=== PATIENT | female | born 1955 | race Caucasian/White ===

== ENCOUNTER → 2023-10-03 | Outpatient (CLI) | payer MEDICARE, SELFPAY ==
--- NOTE | 2023-10-03 08:43 | CT_ITS ---
STUDY: CT ABDOMEN AND PELVIS WITH CONTRAST REASON FOR EXAM: Female, 67 years old. Abdominal pain, constipation RADIATION DOSAGE (If Supplied By Facility): CTDIvol = ( 19.85 ) mGy, DLP = ( 1483.72 ) mGycm TECHNIQUE: Oral and amp;amp; IV Gastrografin and amp;amp; 100mL Isovue-300 was administered. Transaxial images were obtained from the dome of the diaphragm to the symphysis pubis. Multiplanar coronal and sagittal images were reformatted. Individualized Dose Optimization Techniques Were Used For This CT. COMPARISON: Prior study dated: 02/23/2011 FINDINGS: The visualized lung bases are unremarkable. The visualized portions of the heart are within normal limits. Normal liver. Normal gallbladder and extrahepatic biliary system. Normal spleen. Normal pancreas. Normal bilateral adrenal glands. Normal visualized stomach. Normal in caliber small bowel loops narrowing of the rectosigmoid colon likely due to underdistention.. The colon is better evaluated by colonoscopy. Diverticulosis without evidence of acute diverticulitis. The appendix is visualized and appears normal. There is diffuse atherosclerotic calcification of the abdominal aorta, without a demonstrated aneurysm. No retroperitoneal adenopathy. Normal right kidney. Normal left kidney. Normal urinary bladder. Metallic clips from previous tubal ligation. No pelvic mass. No free fluid. Normal abdominal wall. Fusion of the lower thoracic and upper lumbar vertebrae with pedicle screws and rods. CT/Abdomen/Pelvis WITH Contrast IMPRESSION: 1. Diverticulosis without evidence of acute diverticulitis. 2. No focal acute inflammatory process. Electronically Signed: Jorge Slater MD at 11:53 EST ,
--- OUTSIDE RECORDS SUMMARY | 2023-10-03 09:05 | XMS RPT_ITS | CCD ---
Author Name Unknown Address [facility] [facility] [address] [place] [address] Organization [facility] Care Team Providers Care Ep Technologist Name Role Phone Kash Trejo DO Primary Care Provider [phone] MARV NORRIS Referring Unavailable KASH TREJO Attending Unavailable KASH TREJO Primary Care Unavailable OPAL CHEN Referring Unavailable KASH TREJO Primary Care Unavailable MARV NORRIS Referring Unavailable KASH TREJO Primary Care Unavailable Kash Trejo DO Primary Care Provider Medications Current Medications Medication Drug Class(es) Dates Sig (Normalized) Sig (Original) candesartan cilexetil 8 mg oral tablet (16 sources) Angiotensin 2 Receptor Fadumo Start: 12-23-2021 End: 12-20-2023 take 1 tablet by mouth once daily candesartan (ATACAND) 8 mg tablet Indications: Essential hypertension Take 1 tablet by mouth once daily. 90 tablet 3 09/21/2023 12/20/2023 Active Completed/Discontinued Medications Medication Drug Class(es) Dates Sig (Normalized) Sig (Original) aspirin 81 mg delayed release oral tablet (17 sources) Platelet Aggregation Inhibitor, Nonsteroidal Anti-inflammatory Drug take 1 tablet by mouth once daily aspirin, enteric coated (ASPIRIN LOW DOSE) 81 mg EC tablet Take 81 mg by mouth once daily. 0 Active Problems Active Problems Problem Classification Problem Date Documented Da te Episodic/Chronic Anxiety disorders (20 sources) Panic disorder without agoraphobia; Translations: [Panic disorder [episodic paroxysmal anxiety]] Onset: 2 02-20-2008 Chronic Cancer of breast (19 sources) Malignant tumor of breast ; Translations: [Malignant neoplasm of unspecified site of unspecified female breast] Onset: 5 02-22-2015 Chronic Disorders of lipid metabolism (16 sources) Dyslipidemia; Translations: [Hyperlipidemia, unspecified] Onset: 2 12-23-2021 Chronic Diverticulosis and diverticulitis (17 sources) Diverticulitis of large intestine without perforation or abscess without bleeding; Translations: [Diverticulitis of colon (without mention of hemorrhage)] Onset: 8 07-25-2021 Chronic Esophageal disorders (19 sources) Gastroesophageal reflux disease; Translations: [Gastro-esophageal reflux disease without esophagitis] Onset: 4 02-20-2008 Chronic Essential hypertension (20 sources) Hypertensive disorder; Translations: [Essential (primary) hypertension] Onset: 3 04-08-2013 Chronic Nutritional deficiencies (15 sources) Vitamin D deficiency; Translations: [Vitamin D deficiency, unspecified] Onset: 2 12-23-2021 Chronic Osteoarthritis (17 sources) Osteoarthritis; Translations: [Unspecified osteoarthritis, unspecified site] 02-20-2008 Chronic Other bone disease and musculoskeletal deformities (17 sources) Osteopenia; Translations: [Other specified disorders of bone density and structure, multiple sites] 01-03-2021 Episodic Other gastrointestinal disorders (3 sources) Acute constipation; Translations: [Constipation, unspecified] Onset: 4 09-21-2023 Episodic Other gastrointestinal disorders (3 sources) Abdominal bloating; Translations: [Abdominal distension (gaseous)] Onset: 4 09-21-2023 Episodic Other gastrointestinal disorders (2 sources) Burping; Translations: [Eructation] Onset: 4 10-02-2023 Episodic Other nervous system disorders (17 sources) Carpal tunnel syndrome of right wrist; Translations: [Carpal tunnel syndrome, right upper limb] Onset: 9 04-22-2019 Chronic Other nutritional; endocrine; and metabolic disorders (17 sources) Obesity; Translations: [Obesity, unspecified] 02-20-2008 Chronic Other nutritional; endocrine; and metabolic disorders (18 sources) Obese class I; Translations: [Obesity, unspecified] Onset: 9 04-22-2019 Chronic Spondylosis; intervertebral disc disorders; other back problems (20 sources) Degeneration of lumbar intervertebral disc; Translations: [Other intervertebral disc degeneration, lumbar region] Onset: 6 02-18-2016 Chronic Past or Other Problems Problem Classification Problem Date Documented Da te Episodic/Chronic Cancer of breast (17 sources) History of malignant neoplasm of breast; Translations: [Personal history of malignant neoplasm of breast] Onset: 02-04-2016 02-04-2016 Episodic Conditions associated with dizziness or vertigo (17 sources) Vertigo; Translations: [Dizziness and giddiness] Onset: 12-30-2020 12-30-2020 Episodic Diabetes mellitus without complication (18 sources) Impaired fasting glycemia; Translations: [Impaired fasting glucose] Onset: 04-22-2019 04-22-2019 Episodic Gastritis and duodenitis (17 sources) Acute gastritis; Translations: [Acute gastritis without bleeding] Onset: 02-12-2008 02-20-2008 Episodic Nonmalignant breast conditions (17 sources) Inflammatory disorder of breast; Translations: [Mastitis without abscess] Onset: 10-01-2012 10-01-2012 Episodic Other connective tissue disease (10 sources) Trochanteric bursitis; Translations: [Trochanteric bursitis, right hip] Onset: 12-08-2022 Episodic Other inflammatory condition of skin (10 sources) Granuloma annulare; Translations: [Granuloma annulare] Onset: 12-08-2022 Episodic Other screening for suspected conditions (not mental disorders or infectious disease) (7 sources) Patient encounter status; Translations: [Encounter for screening mammogram for malignant neoplasm of breast] Onset: 2022 Episodic Other skin disorders (17 sources) Actinic keratosis; Translations: [Actinic keratosis] Onset: 04-22-2019 04-22-2019 Episodic Spondylosis; intervertebral disc disorders; other back problems (20 sources) Chronic low back pain; Translations: [Lumbago with sciatica, unspecified side] Onset: 02-18-2016 02-18-2016 Episodic Results Test Name Value Interpretation Reference Range Facil ity Vital Signs Date Time Vital Sign Value Performing Clinician Aubrey pelayo 09-21-2023 13:05-0500 Body temperature 97.11 [degF] Kash [facility] Work Phone: [facility] 09-21-2023 13:05-0500 Body weight 85.73 kg Kash Monterorison DO Work Phone: [facility] 09-21-2023 13:05-0500 Diastolic blood pressure 80 mm[Hg] Kash Trejo DO Work Phone: [facility] 09-21-2023 13:05-0500 Heart rate 80 /min Kash Trejo DO Work Phone: [facility] 09-21-2023 13:05-0500 Respiratory rate 16 /min Kash Trejo DO Work Phone: [facility] 09-21-2023 13:05-0500 Systolic blood pressure 146 mm[Hg] Kash Trejo DO Work Phone: [facility] 12-08-2022 08:04-0400 Body height 159 cm Kash Trejo DO Work Phone: [facility] 12-08-2022 08:04-0400 Body temperature 98.01 [degF] Kash Trejo DO Work Phone: [facility] 12-08-2022 08:04-0400 Body weight 83.92 kg Kash Trejo DO Work Phone: [facility] 12-08-2022 08:04-0400 Diastolic blood pressure 70 mm[Hg] Kash Trejo DO Work Phone: [facility] 12-08-2022 08:04-0400 Heart rate 76 /min Kash Trejo DO Work Phone: [facility] 12-08-2022 08:04-0400 Respiratory rate 16 /min Kash Trejo DO Work Phone: [facility] 12-08-2022 08:04-0400 Systolic blood pressure 124 mm[Hg] Kash Trejo DO Work Phone: [facility] Encounters Encounter Date Encounter Type Care Provider Facility Start: 09-24-2023 Telephone encounter Kash palomino DO Work Phone: [facility] Procedures Date Procedure Procedure Detail Performing Clinician Start: 12-07-2022 Lipid 1996 panel - S angel luis or Plasma Screen Wstr Start: 2022 ISAIAH SCREENING W IVAN Al yson Norris STOVE TENDER.MARKETING FINANCE SPECIALIST Work Phone: Start: 2022 Mammography Mammograph y Coordinator Start: 06-02-2022 INFLUENZA SEASONAL QUADRIVALENT HIGH DOSE AGE 65+ Kash Trejo DO Work Phone: Start: 12-23-2021 Adult depression scr eening assessment Danielle Shafer PA-C Work Phone: Start: 11-14-2021 ISAIAH SCREENING W IVAN Elicia sueneil Ita Caleb DO Work Phone: Start: 11-14-2021 Mammography Screen Wst r Start: 12-22-2020 Adult depression scr eening assessment Screen Wstr Start: 08-10-2015 Colonoscopy Screen Wst r Plan of Treatment Date Care Activity Detail Author Start: 12-22-2030 Urine microalbumin profile [facility] Start: 12-08-2027 Lipid 1996 panel - Serum or Plasma Lipid Screening [facility] Start: 12-08-2027 Lipid panel Lipid Screening [facility] Start: 12-08-2027 LIPID SCREEN LIPID SCREEN [facility] Start: 12-21-2026 LIPID SCREEN LIPID SCREEN [facility] Start: 09-21-2026 Diabetes Screening Diabetes Screening [facility] Start: 12-22-2025 LIPID SCREEN LIPID SCREEN [facility] Start: 12-07-2025 DIABETES SCREEN DIABETES SCREEN [facility] Start: 12-07-2025 Diabetes Screening Diabetes Screening [facility] Start: 08-10-2025 Colonoscopy COLONOSCOPY [facility] Start: 08-10-2025 COLORECTAL CANCER SCREENING COLORECTAL CANCER SCREENING [facility] Start: 08-10-2025 Screening for malignant neoplasm of colon [facility] Start: 12-21-2024 DIABETES SCREEN DIABETES SCREEN [facility] Start: 09-21-2024 Annual PCP Team Chronic Disease Visit Annual PCP Team Chronic Disease Visit [facility] Start: 12-23-2023 DIABETES SCREEN DIABETES SCREEN [facility] Start: 12-09-2023 ANNUAL PCP TEAM CHRONIC DISEASE VISIT ANNUAL PCP TEAM CHRONIC DISEASE VISIT [facility] Start: 12-09-2023 BP CONTROLLED (<130/80) BP CONTROLLED (<130/80) [facility] in Start: 11-10-2023 Mammography [facility] Start: 11-10-2023 Screening for malignant neoplasm of breast Mammogram Screening [facility] Start: 07-30-2023 Depression Assessment Depression Assessment [facility] Start: 03-30-2023 Covid-19 Vaccine ( season) Covid-19 Vaccine ( season) [facility] Start: 03-30-2023 Influenza vaccination [facility] Start: 12-23-2022 Adult depression screening assessment DEPRESSION SCREENING [facility] Start: 12-23-2022 ANNUAL PCP TEAM CHRONIC DISEASE VISIT ANNUAL PCP TEAM CHRONIC DISEASE VISIT [facility] Start: 12-23-2022 BP CONTROLLED (<130/80) BP CONTROLLED (<130/80) [facility] inic Start: 12-04-2022 End: 02-03-2023 25-hydroxyvitamin D3 [Mass/volume] in Serum or Plasma VITAMIN D 25 HYDROXY Lab Routine Well adult exam Expected: 12/04/2022, Expires: 02/03/2023 [facility] Work Phone: Immunizations Immunization Date Immunization Notes Care Provider Yady lfeming 06-02-2022 influenza, high-dose , quadrivalent vaccine (FLUZONE HIGH DOSE QUADRIVALENT) Immunization [place] Work Phone: [facility] Work Phone: 06-02-2022 influenza virus vaccine, unspecified formulation Screen [facility] 07-04-2021 zoster vaccine recombinant Immunization [place] Work Phone: [facility] Work Phone: 06-21-2021 pneumococcal polysaccharide vaccine, 23 valent Immunization [place] Work Phone: [facility] Work Phone: 12-24-2020 zoster vaccine recombinant Immunization [place] Work Phone: [facility] Work Phone: 12-22-2020 tetanus toxoid, redu rg diphtheria toxoid, and acellular pertussis vaccine, adsorbed Screen [facility] Work Phone: 06-18-2020 pneumococcal conjuga te vaccine, 13 valent Immunization [place] Work Phone: [facility] Work Phone: 05-16-2017 influenza, seasonal, injectable Screen Wstr [facility] Work Phone: 07-19-2015 influenza, injectabl e, quadrivalent, contains preservative Screen [facility] 06-03-2014 influenza, seasonal, injectable Screen tr [facility] Work Phone: Payers Date Payer Category Payer Medicare MMO MEDICARE MMO MEDADVANTAGE [facility] [id number] 2021-Present [phone] [address] [place] [address] [facility] [id number] 2021 Medicare [id number] 2021 Unknown [id number] Social History Date Type Detail Facility Start: 08-02-2012 End: 12-08-2022 Tobacco smoking status NHIS Ex-smoker [facility] in End: 07-30-2004 History of tobacco use Current smoker [facility] End: 07-30-2004 History of tobacco use Cigarette Smoker [facility] Start: 09-16-2021 End: 09-21-2023 Alcohol intake Current non-drinker of alcohol (finding) [facility] Start: 09-16-2021 History SDOH Alcohol Frequency 2 [facility] Start: 09-16-2021 History SDOH Alcohol Std Drinks 1 [facility] Start: 09-16-2021 History SDOH Social Connections Phone 4 [facility] Start: 09-16-2021 History SDOH Social Connections Get Together 98 [facility] Start: 09-16-2021 History SDOH Social Connections Living 5 [facility] Start: 09-16-2021 History SDOH Physica l Activity DPW 7 [facility] Start: 09-17-2019 Education 12 [facility] Start: 1955 Sex Assigned At Not on file [facility] Start: 11-04-2021 End: 11-14-2021 Exposure to SARS-CoV-2 (event) Not sure [facility] Start: 08-02-2012 End: 09-21-2023 Cigarettes smoked current (pack per day) - Reported 0.5 [facility] Start: 08-02-2012 End: 12-08-2022 Tobacco use and exposure Smokeless tobacco non-user [facility] Start: 09-15-2021 End: 09-21-2023 Social connection and isolation panel [facility] How often do you get together with friends or relatives? Patient refused [facility] Do you belong to any clubs or organizations such as catholic groups, unions, fraternal or athletic groups, or school groups? No [facility] Are you now , , , , never or living with a partner? [facility] How often to you hav e a drink containing alcohol? Monthly or less [facility] How many standard dr inks containing alcohol do you have on a typical day? 1 or 2 [facility] How often do you hav e 6 or more drinks on 1 occasion? Never [facility] How hard is it for y ou to pay for the very basics like food, housing, medical care, and heating Not very hard [facility] Do you feel stress - tense, restless, nervous, or anxious, or unable to sleep at night because your mind is troubled all the time - these days [OSQ] Not at all [facility] (I/We) worried wheth er (my/our) food would run out before (I/we) got money to buy more. Never true [facility] Start: 1955 Sex Assigned At Female C [facility] Start: 09-11-2023 Gender identity Identifies as female gender (finding) [facility] Medical Equipment Procedure Code Equipment Code Equipment Origin al Text Equipment Identifier Dates Port Implantable Power Port 6fr - [id number] Start: 01-12-2012 Clinical Notes 02-07-2012 to 10-02-2023 Kash Trejo, DO - 10/02/2023 9:19 AM ESTTelephone Encounter - Khushboo Jones LPN - 09/26/2023 1:04 PM ESTTelephone Encounter - Marv Norris APRN.CNP - 09/26/2023 11:13 AM EST Note Date & Type Note Facility 10-02-2023 History of Present illness Narrative CC: Ivonne Fontenot is a 67 year old female who presents to the office for abdominal symptoms HPI: Abdominal symptoms- she has had intermittent abdominal pain and bloating and abdominal distension, typically in upper abdomen. She thought was due to eggs and cheese which she has eliminated. She has been drinking a juiced drink from carrots, celery and spinach at lunch and breakfast is PB and whole grain toast. She is avoiding processed foods. No vomiting. No blood in stool. Does have intermittent nausea. Last colonoscopy was 2015. Does have belching and GERD symptoms that come and go as well. She is willing to have further testing She remembers in 2010 that she had 6 days of abdominal severe pain, diagnosed with a bowel obstruction. Given enemas and had colonoscopy at that time. PAST MEDICAL HISTORY Diagnosis Date JOSE positive 12/2013 Breast cancer (HCC) left Carpal tunnel syndrome on both sides 08/2013 Diverticulosis of colon (without mention of hemorrhage) Endometriosis, site unspecified Esophageal reflux Zantac daily helps - usually it's ASA or MVI that cause symptoms Hypertension Iron deficiency anemia, unspecified resolved Obesity, unspecified Osteoarthrosis, unspecified whether generalized or localized, other specified sites neck Osteopenia of multiple sites Panic disorder without agoraphobia Perforation of intestine (HCC) descending colon Psoriasis Examination Supervisor Dr. Vanessa PAST SURGICAL HISTORY Procedure Laterality Date BX BREAST PERC NEED W/GUID 11/25/11 U/S needle core bx UOQ left breast COLONOSCOPY FLX DX W/COLLJ SPEC WHEN PFRMD 02/12/2008 Colonoscopy COLONOSCOPY FLX DX W/COLLJ SPEC WHEN PFRMD 02-26-11 CT GUIDED ABCESS DRAINAGE 05/03/2008 at [facility] DILATION & CURETTAGE DX&/THER NONOBSTETRIC ESOPHAGOGASTRODUODENOSCOPY TRANSORAL DIAGNOSTIC 02/12/2008 EGD INSJ TUNNELED CTR VAD W/SUBQ PORT AGE 5 YR/> RIGHT IJ LAPAROSCOPY COLECTOMY PARTIAL W/ANASTOMOSIS 04/18/08 LIG/TRNSXJ FLP TUBE ABDL/VAG APPR UNI/BI MASTECTOMY,PARTIAL, WITH AXILLARY LYMPHADENECTOMY 12-12-11 LEFT PAST SURGICAL HISTORY OF purnima fixation of T12 - after fracture PAST SURGICAL HISTORY OF 1994 T12 burst s/p fall, rods/screws in place RMVL PETROS CTR VAD W/SUBQ PORT/CELL PLASTERER CTR/PRPH INSJ 2/6/13 Removal right IJ port Current Outpatient Medications Medication Sig hydroCHLOROthiazide 12.5 mg capsule Take 1 capsule by mouth once daily. calcium carb/vit D2/minerals (CALCIUM 600+MINERALS ORAL) Take by mouth. 1200 mg daily omeprazole (PRILOSEC) 20 mg capsule Take 1 capsule by mouth once daily. MULTIVITAMIN ORAL Take by mouth. Cholecalciferol, Vitamin D3, (VITAMIN D) 1,000 unit cap Take 1,000 Units by mouth once daily. [place]-3 Fatty Acids-Vitamin E (FISH OIL) 1,000 mg cap Take 1 capsule by mouth once daily. aspirin, enteric coated (ASPIRIN LOW DOSE) 81 mg EC tablet Take 81 mg by mouth once daily. candesartan (ATACAND) 8 mg tablet Take 1 tablet by mouth once daily. sertraline (ZOLOFT) 50 mg tablet Take 1 tablet by mouth once daily. No current facility-administered medications for this visit. ALLERGIES No Known Allergies Social History Tobacco Use Smoking status: Former Packs/day: 0.50 Years: 10.00 Additional pack years: 0.00 Total pack years: 5.00 Types: Cigarettes Quit date: 07/30/2004 Years since quittin.1 Smokeless tobacco: Never Vaping Use Vaping Use: Never used Substance Use Topics Alcohol use: No Drug use: No ROS: See HPI PE: BP 146/80 Pulse 80 Temp (Src) 97.1 (Left Tympanic) Resp 16 Wt 189 lb (85.7kg) LMP 12/31/2010 Gen: A&OX3, NAD, non-toxic appearing HEENT: PERRLA, EOMs intact b/l, nares without drainage, pharynx without erythema, exudate, lesions, or drainage. Uvula midline. Neck: No LAD, no thyromegaly, no meningismus. CV: RRR, no murmur Lungs: CTA b/l, no wheezing Skin: No rashes, lesions, or wounds on exposed skin. Abd: distension present, tender upper abdomen, bloating present, no R/r/g, normal to slightly hypoactive bowel sounds, no obvious masses. ASSESSMENT/PLAN: 1. Acute constipation - ICD9: 564.00, ICD10: K59.00 (primary diagnosis) Labs as ordered, referral to Gen surgeon for evaluation for EGD and colonoscopy. Last testing 8 years ago. Symptoms are worsening - CBC + DIFF - COMP METABOLIC PANEL - TSH BLD - T4 FREE/FREE THYROX - T3 FREE BLD - LIPASE BLD - XR ABDOMEN 2V ROUTINE SUPINE W UPRIGHT/DECUB/CTL - CONSULT TO GENERAL SURGERY 2. Essential hypertension - ICD9: 401.9, ICD10: I10 - Controlled - Continue current medications - Recommend home blood pressure monitoring, to bring results to next visit - Encouraged sodium restriction, DASH or Mediterranean diet - Recommend regular aerobic exercise - CANDESARTAN 8 MG TABLET 3. NATASHA (generalized anxiety disorder) - ICD9: 300.02, ICD10: F41.1 Prescription refilled, stable - SERTRALINE 50 MG TABLET 4. Bloating - ICD9: 787.3, ICD10: R14.0 Labs as ordered, referral to Gen surgeon for evaluation for EGD and colonoscopy. Last testing 8 years ago. Symptoms are worsening - CBC + DIFF - COMP METABOLIC PANEL - TSH BLD - T4 FREE/FREE THYROX - T3 FREE BLD - LIPASE BLD - XR ABDOMEN 2V ROUTINE SUPINE W UPRIGHT/DECUB/CTL - CONSULT TO GENERAL SURGERY 5. Gastroesophageal reflux disease without esophagitis - ICD9: 530.81, ICD10: K21.9 Labs as ordered, referral to Gen surgeon for evaluation for EGD and colonoscopy. Last testing 8 years ago. Symptoms are worsening 6. Belching - ICD9: 787.3, ICD10: R14.2 Labs as ordered, referral to Gen surgeon for evaluation for EGD and colonoscopy. Last testing 8 years ago. Symptoms are worsening 7. Malignant neoplasm of female breast, unspecified estrogen receptor status, unspecified laterality, unspecified site of breast (HCC) - ICD9: 174.9, ICD10: C50.919 Hx of Kash Trejo DO Return if no improvement. Follow up with Kash Trejo DO. To ER if develops chest pain, shortness of breath. Discussed risks, benefits, alternatives, and potential side effects of medications. Patient/Guardian expressed understanding and agreed with the plan. See patient instructions. Kash Trejo DO [address] [place] [address] documented in this encounter [facility] 09-26-2023 Miscellaneous Notes Spoke with pt gave information provided. Pt voices understanding. I understand her anxiousness. Continue with daily miralax and increasing fluids. Also try to alter diet to include fiber rich foods. Thank you, Marv Norris APRN.MARKETING FINANCE SPECIALIST Patient calling asking if anything she should be doing for her bowels? She is using miralax every evening. She is drinking over 100 ounces of water. Patient is very anxious about her situation, does not want to be back in the hospital with bowel issus again. Please advise Patient requested general surgery consult to be faxed to Dr Lora Duvall at [phone]. Printed consult and face sheet and insurance card copy and faxed. After 6 attempts and 2 different fax machines, gave consult to ethologist to deliver on her next rounds. documented in this encounter [facility] 09-21-2023 History of Present illness Narrative Radiology Service Progress Note PATIENT NAME: Ivonne Fontenot DATE OF SERVICE: September 21, 2023 TIME: 3:11 PM PATIENT IDENTITY VERIFICATION COMPLETED USING TWO (2) IDENTIFIERS: Name and Date of confirmed by patient verbally. FALL SCREENING: Has the patient had 2 falls in the last year or 1 fall with injury or currently using an Ambulatory Assistive Device (Walker, Cane, Wheelchair, Crutches, etc.)? No PATIENT GENDER DATA: Female. status: : No status: NO. PATIENT RELEVANT IMPLANT DATA REVIEWED: Yes PATIENT PRESENTS WITH AN IMPLANTABLE OR ATTACHED SIGN HANGER SUPERVISOR: No RADIOLOGY DEPARTMENT: General X-ray: Exam(s) Completed: Abdomen X-Ray: Abdomen PERIPHERAL IV DATA: Not applicable SIGNED BY: RT Vadim(R) September 21, 2023 3:11 PM documented in this encounter [facility] 09-20-2023 Miscellaneous Notes Patient call in for bowel movement issues. Patient normally has 3-4 bowel movements a day. Patient on Sunday did not have a bowel movement. Patient states that her abdomen looked and felt swollen. Patient took dose of Miralax Sunday night. Patient had bowel movement, although not her normal on Sunday. Patient had another dose Sunday evening and had bowel movement today. Patient states that she still feels bloated. Nurse Triage assessment completed with protocol recommending for disposition of See PCP in 24 hours. Patient scheduled with Dr. Trejo on 09/21/2023. Care advice reviewed with patient, patient stated understanding. Patient advised to contact office or seek evaluation in urgent care or ER if symptoms persist or gets worse. Reason for Disposition Abdomen is more swollen than usual Answer Assessment - Initial Assessment Questions 1. STOOL PATTERN OR FREQUENCY: 3-4 times bowel movement a day; sometimes more 2. STRAINING: Not straining; 3. RECTAL PAIN: Denies rectal pain 4. STOOL COMPOSITION: Stool are not hard; soft stools 5. BLOOD ON STOOLS: Denies blood 6. CHRONIC CONSTIPATION: Stools are normally soft 7. CHANGES IN DIET OR HYDRATION: Eating Healthier; not drinking as much; Started drinking fluids more yesterday 8. MEDICINES: Denies 9. LAXATIVES: Has been using Miralax past couple of days; Patient drank it at night 10. ACTIVITY: Walks 2.5 miles 6-7 days a week 11. CAUSE: Unsure 12. OTHER SYMPTOMS: Bloated; yesterday abdomen felt hard, today she just feels bloated 13. MEDICAL HISTORY: Patient has had bowel surgery. Protocols used: [id number] documented in this encounter [facility] 09-03-2023 Miscellaneous Notes Pt sent in emotion.me message requesting an order for her yearly mammogram, pts last mammogram was 2022 Please review and advise Thank you! documented in this encounter [facility] 01-31-2023 Miscellaneous Notes Patient has been identified by name and date of : Yes, Lelo Aragon RN Date 01/31/2023 Time 2:50 pm Patient phones for refill(s): Requested Prescriptions Pending Prescriptions Disp Refills hydroCHLOROthiazide 12.5 mg capsule 90 capsule 3 Sig: Take 1 capsule by mouth once daily. candesartan (ATACAND) 8 mg tablet 90 tablet 3 Sig: Take 1 tablet by mouth once daily. sertraline (ZOLOFT) 50 mg tablet 90 tablet 3 Sig: Take 1 tablet by mouth once daily. Date of last office visit with pcp: 12/08/2022 Future appt: none Last 2 Encounter Wt Readings: Date: Wt: 12/08/2022 83.9 kg (185 lb) 12/23/2021 83.9 kg (185 lb) Previous labs/tests for medication: Blood Pressure: BUN (mg/dL) Date Value 12/07/2022 23 12/22/2020 17 Sodium (mmol/L) Date Value 12/07/2022 138 12/22/2020 138 Last 1 Encounter BP Readings: Date: BP: 12/08/2022 124/70 Liver Function: ALT (U/L) Date Value 12/07/2022 15 12/22/2020 22 AST (U/L) Date Value 12/07/2022 22 12/22/2020 22 Please advise. Thank you. Lelo Aragon RN documented in this encounter [facility] 12-11-2022 Miscellaneous Notes Patient notified and verbalized understanding Margarita Rousseau Cma Please let patient know her labs are stable. Her hemoglobin a1c has improved. documented in this encounter [facility] 12-08-2022 Note HNO ID: [id number] Author: Kash Trejo, DO Service: ? Author Type: Physician Type: Progress Notes Filed: 12/08/2022 9:44 AM Note Text: CC: Ivonne Fontenot is a 67 year old female who presents to the office for routine follow up HPI: B/l hip pain, lateral, only when laying on her sides in the night. No swelling or skin cchanges. Osteopenia, has been trying to walk most days of the week with her dog MARLYN, diet controlled Granuloma Annulare, diagnosed by Derm, stable, b/l legs and abdomen and some on back. HTN, well controlled, taking medications as prescribed Anxiety, taking Zoloft, symptoms stable, no depression GERD, stable, taking omeprazole PAST MEDICAL HISTORY Diagnosis Date JOSE positive 12/2013 Breast cancer (HCC) left Carpal tunnel syndrome on both sides 08/2013 Diverticulosis of colon (without mention of hemorrhage) Endometriosis, site unspecified Esophageal reflux Zantac daily helps - usually it's ASA or MVI that cause symptoms Hypertension Iron deficiency anemia, unspecified resolved Obesity, unspecified Osteoarthrosis, unspecified whether generalized or localized, other specified sites neck Osteopenia of multiple sites Panic disorder without agoraphobia Perforation of intestine (HCC) descending colon Psoriasis Examination Supervisor Dr. Vanessa PAST SURGICAL HISTORY Procedure Laterality Date BX BREAST PERC NEED W/GUID 11/25/11 U/S needle core bx UOQ left breast COLONOSCOPY FLX DX W/COLLJ SPEC WHEN PFRMD 02/12/2008 Colonoscopy COLONOSCOPY FLX DX W/COLLJ SPEC WHEN PFRMD 02-26-11 CT GUIDED ABCESS DRAINAGE 05/03/2008 at [facility] DILATION AND CURETTAGE DXAND/THER NONOBSTETRIC ESOPHAGOGASTRODUODENOSCOPY TRANSORAL DIAGNOSTIC 02/12/2008 EGD INSJ TUNNELED CTR VAD W/SUBQ PORT AGE 5 YR/> RIGHT IJ LAPAROSCOPY COLECTOMY PARTIAL W/ANASTOMOSIS 04/18/08 LIG/TRNSXJ FLP TUBE ABDL/VAG APPR UNI/BI MASTECTOMY,PARTIAL, WITH AXILLARY LYMPHADENECTOMY 12-12-11 LEFT PAST SURGICAL HISTORY OF purnima fixation of T12 - after fracture PAST SURGICAL HISTORY OF 1994 T12 burst s/p fall, rods/screws in place RMVL PETROS CTR VAD W/SUBQ PORT/CELL PLASTERER CTR/PRPH INSJ 09/04/12 Removal right IJ port Social History: Social History Tobacco Use Smoking status: Former Packs/day: 0.50 Years: 10.00 Pack years: 5.00 Types: Cigarettes Quit date: 07/30/2004 Years since quittin.3 Smokeless tobacco: Never Vaping Use Vaping Use: Never used Substance Use Topics Alcohol use: No Drug use: No FAMILY HISTORY Problem Relation Age of Onset other (Dementia) Mother was not thought to be Alzheimer's - although some dementia seems to run in her side of family other (pancreatitis) Father due to gallstone - no EtOH - age 81 Diabetes Maternal Aunt Breast Cancer Sister age 64 - thought to possibly be related to premarin - doing well Cancer Sister Lung Current Outpatient prescriptions: hydroCHLOROthiazide (HYDRODIURIL, ESIDRIX) 12.5 mg capsule TAKE 1 CAPSULE DAILY candesartan (ATACAND) 8 mg tablet Take 1 tablet by mouth once daily. sertraline (ZOLOFT) 50 mg tablet Take 1 tablet by mouth once daily. calcium carb/vit D2/minerals (CALCIUM 600+MINERALS ORAL) Take by mouth. 1200 mg daily omeprazole (PRILOSEC) 20 mg capsule Take 1 capsule by mouth once daily. MULTIVITAMIN ORAL Take by mouth. Cholecalciferol, Vitamin D3, (VITAMIN D) 1,000 unit cap Take 1,000 Units by mouth once daily. aspirin, enteric coated (ASPIRIN LOW DOSE) 81 mg EC tablet Take 81 mg by mouth once daily. [place]-3 Fatty Acids-Vitamin E (FISH OIL) 1,000 mg cap Take 1 capsule by mouth once daily. Allergies: ALLERGIES No Known Allergies ROS: See HPI PE: 12/08/22 0804 BP: 124/70 Pulse: 76 Resp: 16 Temp: 36.7 ?C (98 ?F) TempSrc: Left Tympanic Weight: 83.9 kg (185 lb) Height: 159 cm (5' 2.6 ) Gen: AANDO, NAD, non-toxic appearing, Pleasant, cooperative HEENT: NT/AC, PERRLA,wearing glasses, EOMs intact b/l, nares clear and patent b/l, pharynx without erythema, exudate or lesions. MMM, Uvula midline. EACs without erythema or debris. TMs pearly kay with intact landmarks b/l. Neck: supple, No cervical LAD, no thyromegaly, no carotid bruits CV: RRR, normal S1 and S2, no murmurs, no gallops, no rubs, Pulses 2+ and symmetric in UE and LE b/l Lungs: normal respiratory effort, CTA b/l, no wheezing or rhonchi or rales Abd: soft, overweight, NT, ND, +BS, no hepatosplenomegaly MS: mild TTP b/l greater trochanter bursa areas and tight restricted IT bands b/l Neuro: CN II-XII intact b/l, strength 5/5 b/l UE and LE, DTRs 2/4 UE and LE, sensation intact. Skin: warm, dry, intact, granuloma annulare rash b/l legs and abdomen and mid and lower back ASSESSMENT/PLAN: 1. Greater trochanteric bursitis of both hips - ICD9: 726.5, ICD10: M70.61, M70.62 (primary diagnosis) Need for local icing and topical voltaren and stretches as d/w her today 2. Skin cancer scr (more content not included)... [facility] 12-08-2022 History of Present illness Narrative CC: Ivonne Fontenot is a 67 year old female who presents to the office for routine follow up HPI: B/l hip pain, lateral, only when laying on her sides in the night. No swelling or skin cchanges. Osteopenia, has been trying to walk most days of the week with her dog MARLYN, diet controlled Granuloma Annulare, diagnosed by Derm, stable, b/l legs and abdomen and some on back. HTN, well controlled, taking medications as prescribed Anxiety, taking Zoloft, symptoms stable, no depression GERD, stable, taking omeprazole PAST MEDICAL HISTORY Diagnosis Date JOSE positive 12/2013 Breast cancer (HCC) left Carpal tunnel syndrome on both sides 08/2013 Diverticulosis of colon (without mention of hemorrhage) Endometriosis, site unspecified Esophageal reflux Zantac daily helps - usually it's ASA or MVI that cause symptoms Hypertension Iron deficiency anemia, unspecified resolved Obesity, unspecified Osteoarthrosis, unspecified whether generalized or localized, other specified sites neck Osteopenia of multiple sites Panic disorder without agoraphobia Perforation of intestine (HCC) descending colon Psoriasis Examination Supervisor Dr. Vanessa PAST SURGICAL HISTORY Procedure Laterality Date BX BREAST PERC NEED W/GUID 11/25/11 U/S needle core bx UOQ left breast COLONOSCOPY FLX DX W/COLLJ SPEC WHEN PFRMD 02/12/2008 Colonoscopy COLONOSCOPY FLX DX W/COLLJ SPEC WHEN PFRMD 02-26-11 CT GUIDED ABCESS DRAINAGE 05/03/2008 at [facility] DILATION & CURETTAGE DX&/THER NONOBSTETRIC ESOPHAGOGASTRODUODENOSCOPY TRANSORAL DIAGNOSTIC 02/12/2008 EGD INSJ TUNNELED CTR VAD W/SUBQ PORT AGE 5 YR/> RIGHT IJ LAPAROSCOPY COLECTOMY PARTIAL W/ANASTOMOSIS 04/18/08 LIG/TRNSXJ FLP TUBE ABDL/VAG APPR UNI/BI MASTECTOMY,PARTIAL, WITH AXILLARY LYMPHADENECTOMY 12-12-11 LEFT PAST SURGICAL HISTORY OF purnima fixation of T12 - after fracture PAST SURGICAL HISTORY OF 1994 T12 burst s/p fall, rods/screws in place RMVL PETROS CTR VAD W/SUBQ PORT/CELL PLASTERER CTR/PRPH INSJ 09/04/12 Removal right IJ port Social History: Social History Tobacco Use Smoking status: Former Packs/day: 0.50 Years: 10.00 Pack years: 5.00 Types: Cigarettes Quit date: 07/30/2004 Years since quittin.3 Smokeless tobacco: Never Vaping Use Vaping Use: Never used Substance Use Topics Alcohol use: No Drug use: No FAMILY HISTORY Problem Relation Age of Onset other (Dementia) Mother was not thought to be Alzheimer's - although some dementia seems to run in her side of family other (pancreatitis) Father due to gallstone - no EtOH - age 81 Diabetes Maternal Aunt Breast Cancer Sister age 64 - thought to possibly be related to premarin - doing well Cancer Sister Lung Current Outpatient prescriptions: hydroCHLOROthiazide (HYDRODIURIL, ESIDRIX) 12.5 mg capsule TAKE 1 CAPSULE DAILY candesartan (ATACAND) 8 mg tablet Take 1 tablet by mouth once daily. sertraline (ZOLOFT) 50 mg tablet Take 1 tablet by mouth once daily. calcium carb/vit D2/minerals (CALCIUM 600+MINERALS ORAL) Take by mouth. 1200 mg daily omeprazole (PRILOSEC) 20 mg capsule Take 1 capsule by mouth once daily. MULTIVITAMIN ORAL Take by mouth. Cholecalciferol, Vitamin D3, (VITAMIN D) 1,000 unit cap Take 1,000 Units by mouth once daily. aspirin, enteric coated (ASPIRIN LOW DOSE) 81 mg EC tablet Take 81 mg by mouth once daily. [place]-3 Fatty Acids-Vitamin E (FISH OIL) 1,000 mg cap Take 1 capsule by mouth once daily. Allergies: ALLERGIES No Known Allergies ROS: See HPI PE: 12/08/22 0804 BP: 124/70 Pulse: 76 Resp: 16 Temp: 36.7 C (98 F) TempSrc: Left Tympanic Weight: 83.9 kg (185 lb) Height: 159 cm (5' 2.6 ) Gen: A&O, NAD, non-toxic appearing, Pleasant, cooperative HEENT: NT/AC, PERRLA,wearing glasses, EOMs intact b/l, nares clear and patent b/l, pharynx without erythema, exudate or lesions. MMM, Uvula midline. EACs without erythema or debris. TMs pearly kay with intact landmarks b/l. Neck: supple, No cervical LAD, no thyromegaly, no carotid bruits CV: RRR, normal S1 and S2, no murmurs, no gallops, no rubs, Pulses 2+ and symmetric in UE and LE b/l Lungs: normal respiratory effort, CTA b/l, no wheezing or rhonchi or rales Abd: soft, overweight, NT, ND, +BS, no hepatosplenomegaly MS: mild TTP b/l greater trochanter bursa areas and tight restricted IT bands b/l Neuro: CN II-XII intact b/l, strength 5/5 b/l UE and LE, DTRs 2/4 UE and LE, sensation intact. Skin: warm, dry, intact, granuloma annulare rash b/l legs and abdomen and mid and lower back ASSESSMENT/PLAN: 1. Greater trochanteric bursitis of both hips - ICD9: 726.5, ICD10: M70.61, M70.62 (primary diagnosis) Need for local icing and topical voltaren and stretches as d/w her today 2. Skin cancer screening - ICD9: V76.43, ICD10: Z12.83 stable 3. Granuloma annulare - ICD9: 695.89, ICD10: L92.0 - stable 4. Obesity, Class I, BMI 30-34.9 - ICD9: 278.00, ICD10: E66.9 Stable - Behavioral intervention, - PSMF, - Eat well program, and - Continue current medications 5. Dyslipidemia - ICD9: 272.4, ICD10: E78.5 - suboptimal control - Encouraged following a low fat, low cholesterol diet. - Discussed the benefits of regular aerobic exercise and weight loss. - Encouraged following a low carbohydrate, healthy oil intake diet. 6. NATASHA (generalized anxiety disorder) - ICD9: 300.02, ICD10: F41.1 Stable, continue zoloft 7. IFG (impaired fasting glucose) - ICD9: 790.21, ICD10: R73.01 Improving with exercise and diet changes. 8. Essential hypertension - ICD9: 401.9, ICD10: I10 - good control - Continue current medication(s) - Encouraged dietary sodium restriction/DASH diet - Recommended regular aerobic exercise. - Recommend home blood pressure monitoring, to bring results in on next visit - Discussed need and benefit for weight loss. - Goal of BP <130/80 Kash Trejo DO To ER if develops chest pain, shortness of breath, or severe worsening of symptoms. Discussed risks, benefits, alternatives, and potential side effects of medications. Patient expressed understanding and agreed with the plan. Kash Trejo DO [address] [place] [address] documented in this encounter [facility] 12-04-2022 Miscellaneous Notes TC to patient who verbalized understanding of lab orders and has no further questions at this time. NAHOMI Casarez Please let patient know her lab orders have been placed. Patient calls and states that she has wellness exam on 12/08/2022. Patient asking if lab orders can be placed so that she can get labs done prior to exam. When orders placed patient asking for call back. Lidia Alba RN documented in this encounter [facility] 11-10-2022 Miscellaneous Notes November 13, 2022 PID: [id number] Ivonne Fontenot [address] [place] [address] Dear Ms. Fontenot, We are pleased to inform you that the results of your recent breast imaging exam on 2022 are normal. Your mammogram demonstrates that you have dense breast tissue, which could hide abnormalities. Dense breast tissue, in and of itself, is a relatively common condition. Therefore, this information is not provided to cause undue concern; rather, it is to raise your awareness and promote discussion with your health care provider regarding the presence of dense breast tissue in addition to other risk factors. Early detection of cancer is very important. We also understand recommendations regarding breast cancer screening are controversial. Please discuss with your primary care provider which strategy is best for you and whether a mammogram is right for you. Your imaging studies and report will be kept on file at [facility] as part of your permanent medical record and are available for your continuing care. Thank you for allowing us to help in meeting your health care needs. Sincerely, Dr. Pimentel Interpreting Radiologist [facility] (Normal over 40) documented in this encounter [facility] 2022 Note HNO ID: [id number] Author: Katey Willoughby, [employer] Service: ? Author Type: Switching Operator Type: Progress Notes Filed: 2022 8:55 AM Note Text: Radiology Service Progress Note PATIENT NAME: Ivonne Fontenot DATE OF SERVICE: 2022 TIME: 8:29 AM PATIENT IDENTITY VERIFICATION COMPLETED USING TWO (2) IDENTIFIERS: Name and Date of confirmed by patient verbally. FALL SCREENING: Has the patient had 2 falls in the last year or 1 fall with injury or currently using an Ambulatory Assistive Device (Walker, Cane, Wheelchair, Crutches, etc.)? No PATIENT GENDER DATA: Female. status: : No status: NO. PATIENT RELEVANT IMPLANT DATA REVIEWED: Not Applicable RADIOLOGY DEPARTMENT: Mammography PERIPHERAL IV DATA: Not applicable SIGNED BY: Katey Willoughby KeyOwner 2022 8:29 AM [facility] 2022 History of Present illness Narrative Radiology Service Progress Note PATIENT NAME: Ivonne Fontenot DATE OF SERVICE: 2022 TIME: 8:29 AM PATIENT IDENTITY VERIFICATION COMPLETED USING TWO (2) IDENTIFIERS: Name and Date of confirmed by patient verbally. FALL SCREENING: Has the patient had 2 falls in the last year or 1 fall with injury or currently using an Ambulatory Assistive Device (Walker, Cane, Wheelchair, Crutches, etc.)? No PATIENT GENDER DATA: Female. status: : No status: NO. PATIENT RELEVANT IMPLANT DATA REVIEWED: Not Applicable RADIOLOGY DEPARTMENT: Mammography PERIPHERAL IV DATA: Not applicable SIGNED BY: Katey Willoughby KeyOwner 2022 8:29 AM documented in this encounter [facility] 08-24-2022 Miscellaneous Notes Ordered. Due in October. Please assist in scheduling. Thank you, Marv Norris APRN.MARKETING FINANCE SPECIALIST Pt is requesting an order for a mammogram be placed for her. Please review and advise. MARCELINO Dee documented in this encounter [facility] 03-27-2022 Miscellaneous Notes [place] 12/23/2021 NOV not scheduled at this time Ana Montiel Ma Patient has been identified by name and date of : Yes Requested Prescriptions Pending Prescriptions Disp Refills triamcinolone acetonide (KENALOG) 0.1 % cream 453.6 g 1 Sig: Apply 1 application to affected area twice daily. Apply sparingly to area for rash/itching. RX INSTRUCTIONS: Patient aware RX will be sent to pharmacy. No need to notify patient. Irma Fairbanks documented in this encounter [facility] 01-31-2022 Miscellaneous Notes Patient phones requesting refills as follows: Pending Prescriptions Disp Refills HYDROCHLOROTHIAZIDE 12.5 MG CAPSULE 90 capsule 3 Sig: TAKE 1 CAPSULE DAILY MEGHAN: Yes [place]-12/23/21 Labs-12/21/21 NOV-none med filled 03/04/21 Please review and advise. Julia West LPN documented in this encounter [facility] 11-14-2021 Miscellaneous Notes November 14, 2021 PID: [id number] Ivonne Fontenot [address] [place] [address] [place] [address] Dear Ms. Fontenot, We are pleased to inform you that the results of your recent breast imaging exam on 11/14/2021 are normal. Your mammogram demonstrates that you have dense breast tissue, which could hide abnormalities. Dense breast tissue, in and of itself, is a relatively common condition. Therefore, this information is not provided to cause undue concern; rather, it is to raise your awareness and promote discussion with your health care provider regarding the presence of dense breast tissue in addition to other risk factors. Early detection of cancer is very important. We also understand recommendations regarding breast cancer screening are controversial. Please discuss with your primary care provider which strategy is best for you and whether a mammogram is right for you. Your imaging studies and report will be kept on file at [facility] as part of your permanent medical record and are available for your continuing care. Thank you for allowing us to help in meeting your health care needs. Sincerely, Dr. Shipley Interpreting Radiologist [facility] (Normal over 40) documented in this encounter [facility] 11-14-2021 History of Present illness Narrative Radiology Service Progress Note PATIENT NAME: Ivonne Fontenot DATE OF SERVICE: November 14, 2021 TIME: 7:49 AM PATIENT IDENTITY VERIFICATION COMPLETED USING TWO (2) IDENTIFIERS: Name and Date of confirmed by patient verbally. FALL SCREENING: Has the patient had 2 falls in the last year or 1 fall with injury or currently using an Ambulatory Assistive Device (Walker, Cane, Wheelchair, Crutches, etc.)? No PATIENT GENDER DATA: Female. status: : No status: NO. PATIENT RELEVANT IMPLANT DATA REVIEWED: Not Applicable RADIOLOGY DEPARTMENT: Mammography PERIPHERAL IV DATA: Not applicable SIGNED BY: RT Stewart(R) November 14, 2021 7:49 AM documented in this encounter [facility] 01-03-2021 Note HNO ID: [id number] Author: CHERYL Stephens Service: Radiology Author Type: Clinical Switching Operator Type: Progress Notes Filed: 01/03/2021 10:20 AM Note Text: Radiology Service Progress Note PATIENT NAME: Ivonne Fontenot DATE OF SERVICE: January 03, 2021 TIME: 10:20 AM PATIENT IDENTITY VERIFICATION COMPLETED USING TWO (2) IDENTIFIERS: Name and Date of confirmed by patient verbally. FALL SCREENING: Has the patient had 2 falls in the last year or 1 fall with injury or currently using an Ambulatory Assistive Device (Walker, Cane, Wheelchair, Crutches, etc.)? No PATIENT GENDER DATA: Female. status: : No status: NO. PATIENT RELEVANT IMPLANT DATA REVIEWED: Not Applicable RADIOLOGY DEPARTMENT: Bone Density PERIPHERAL IV DATA: Not applicable SIGNED BY: CHERYL Stephens January 03, 2021 10:20 AM [facility] documented as of this encounter (statuses as of 11/15/2021) [facility] History of Past illness Narrative* Problem Noted Date Resolved Date 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) 02/07/2012 10/28/2013 Seroma 12/26/2011 10/28/2013 Lump or mass in breast 11/25/2011 4 Iron deficiency anemia, unspecified 01/23/2008 10/28/2013 Endometriosis, site unspecified 10/28/2013 documented as of this encounter (statuses as of 11/16/2021) [facility] History of Past illness Narrative* Problem Noted Date Resolved Date 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) 02/07/2012 10/28/2013 Seroma 12/26/2011 10/28/2013 Lump or mass in breast 11/25/2011 4 Iron deficiency anemia, unspecified 01/23/2008 10/28/2013 Endometriosis, site unspecified 10/28/2013 documented as of this encounter (statuses as of 02/01/2022) [facility] History of Past illness Narrative* Problem Noted Date Resolved Date 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) 02/07/2012 10/28/2013 Seroma 12/26/2011 10/28/2013 Lump or mass in breast 11/25/2011 4 Iron deficiency anemia, unspecified 01/23/2008 10/28/2013 Endometriosis, site unspecified 10/28/2013 documented as of this encounter (statuses as of 03/27/2022) [facility] History of Past illness Narrative* Problem Noted Date Resolved Date 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) 02/07/2012 10/28/2013 Seroma 12/26/2011 10/28/2013 Lump or mass in breast 11/25/2011 4 Iron deficiency anemia, unspecified 01/23/2008 10/28/2013 Endometriosis, site unspecified 10/28/2013 documented as of this encounter (statuses as of 06/02/2022) [facility] History of Past illness Narrative* Problem Noted Date Resolved Date 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) 02/07/2012 10/28/2013 Seroma 12/26/2011 10/28/2013 Lump or mass in breast 11/25/2011 4 Iron deficiency anemia, unspecified 01/23/2008 10/28/2013 Endometriosis, site unspecified 10/28/2013 documented as of this encounter (statuses as of 11/14/2022) [facility] of Past illness Narrative* Problem Noted Date Resolved Date 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) 02/07/2012 10/28/2013 Seroma 12/26/2011 10/28/2013 Lump or mass in breast 11/25/2011 4 Iron deficiency anemia, unspecified 01/23/2008 10/28/2013 Endometriosis, site unspecified 10/28/2013 documented as of this encounter (statuses as of 12/04/2022) [facility] of Past illness Narrative* Problem Noted Date Resolved Date 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) 02/07/2012 10/28/2013 Seroma 12/26/2011 10/28/2013 Lump or mass in breast 11/25/2011 4 Iron deficiency anemia, unspecified 01/23/2008 10/28/2013 Endometriosis, site unspecified 10/28/2013 documented as of this encounter (statuses as of 12/08/2022) [facility] of Past illness Narrative* Problem Noted Date Resolved Date 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) 02/07/2012 10/28/2013 Seroma 12/26/2011 10/28/2013 Lump or mass in breast 11/25/2011 4 Iron deficiency anemia, unspecified 01/23/2008 10/28/2013 Endometriosis, site unspecified 10/28/2013 documented as of this encounter (statuses as of 12/11/2022) [facility] of Past illness Narrative* Problem Noted Date Resolved Date 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) 02/07/2012 10/28/2013 Seroma 12/26/2011 10/28/2013 Lump or mass in breast 11/25/2011 4 Iron deficiency anemia, unspecified 01/23/2008 10/28/2013 Endometriosis, site unspecified 10/28/2013 documented as of this encounter (statuses as of 02/01/2023) [facility]07-11-2012 History of Past illness Narrative* Problem Noted Date Diagnosed Date Resolved Date 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) 02/07/2012 10/28/2013 Seroma 12/26/2011 10/28/2013 Lump or mass in breast 11/25/201110/28 Iron deficiency anemia, unspecified 01/23/2008 10/28/2013 Endometriosis, site unspecified 10/28/2013 documented as of this encounter (statuses as of 06/03/2023) [address]11-2012 History of Past illness Narrative* Problem Noted Date Diagnosed Date Resolved Date 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) 02/07/2012 10/28/2013 Seroma 12/26/2011 10/28/2013 Lump or mass in breast 11/25/201110/28 Iron deficiency anemia, unspecified 01/23/2008 10/28/2013 Endometriosis, site unspecified 10/28/2013 documented as of this encounter (statuses as of 06/08/2023) [facility]-2012 History of Past illness Narrative* Problem Noted Date Diagnosed Date Resolved Date 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) 02/07/2012 10/28/2013 Seroma 12/26/2011 10/28/2013 Lump or mass in breast 11/25/201110/28 Iron deficiency anemia, unspecified 01/23/2008 10/28/2013 Endometriosis, site unspecified 10/28/2013 documented as of this encounter (statuses as of 09/03/2023) [facility]-2012 History of Past illness Narrative* Problem Noted Date Diagnosed Date Resolved Date 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) 02/07/2012 10/28/2013 Seroma 12/26/2011 10/28/2013 Lump or mass in breast 11/25/201110/28 Iron deficiency anemia, unspecified 01/23/2008 10/28/2013 Endometriosis, site unspecified 10/28/2013 documented as of this encounter (statuses as of 09/20/2023) [facility]2012 History of Past illness Narrative* Problem Noted Date Diagnosed Date Resolved Date 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) 02/07/2012 10/28/2013 Seroma 12/26/2011 10/28/2013 Lump or mass in breast 11/25/201110/28 Iron deficiency anemia, unspecified 01/23/2008 10/28/2013 Endometriosis, site unspecified 10/28/2013 documented as of this encounter (statuses as of 09/22/2023) [facility]2012 History of Past illness Narrative* Problem Noted Date Diagnosed Date Resolved Date 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) 02/07/2012 10/28/2013 Seroma 12/26/2011 10/28/2013 Lump or mass in breast 11/25/201110/28 Iron deficiency anemia, unspecified 01/23/2008 10/28/2013 Endometriosis, site unspecified 10/28/2013 documented as of this encounter (statuses as of 09/27/2023) [facility]2012 History of Past illness Narrative* Problem Noted Date Diagnosed Date Resolved Date 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) 02/07/2012 10/28/2013 Seroma 12/26/2011 10/28/2013 Lump or mass in breast 11/25/201110/28 Iron deficiency anemia, unspecified 01/23/2008 10/28/2013 Endometriosis, site unspecified 10/28/2013 documented as of this encounter (statuses as of 10/02/2023) [facility] [place] [facility] Diagnosis Encounter for screening mammogram for malignant neoplasm of breast Other screening mammogram [facility] this encounter [facility] [place] [facility] Diagnosis Essential hypertension Unspecified essential hypertension [facility] this [facility] [place] [facility] Diagnosis Well adult exam- Primary Routine general medical examination at a health care facility [facility] Greater trochanteric bursitis of both hips- Primary Enthesopathy of hip region Skin cancer screening Screening for malignant neoplasm of the skin Granuloma annulare Other specified erythematous condition Obesity, Class I, BMI 30-34.9 Obesity, unspecified Dyslipidemia Other and unspecified hyperlipidemia NATASHA (generalized anxiety disorder) Generalized anxiety disorder IFG (impaired fasting glucose) Impaired fasting glucose Essential hypertension Unspecified essential hypertension Malignant neoplasm of female breast, unspecified estrogen receptor status, unspecified laterality, unspecified site of breast (HCC) documented in this encounter [facility] [place] [facility] Diagnosis Essential hypertension Unspecified essential hypertension NATASHA (generalized anxiety disorder) Generalized anxiety disorder [facility] Diagnosis Screening mammogram for breast cancer documented in this [facility] [place] [facility] Diagnosis Screening mammogram for breast cancer- Primary [facility] Diagnosis Encounter for screening mammogram for malignant neoplasm of breast- Primary Other screening mammogram [facility] this [facility] [place] [facility] Diagnosis Acute constipation Unspecified constipation Bloating Flatulence, eructation, and gas pain documented [facility]* Diagnosis Acute constipation- Primary Unspecified constipation Essential hypertension Unspecified essential hypertension NATASHA (generalized anxiety disorder) Generalized anxiety disorder Bloating Flatulence, eructation, and gas pain Gastroesophageal reflux disease without esophagitis Esophageal reflux Belching Flatulence, eructation, and gas pain Malignant neoplasm of female breast, unspecified estrogen receptor status, unspecified laterality, unspecified site of breast (HCC) documented in this encounter [facility] for referral (narrative)* Diagnostic Procedure Only (Routine) - Closed Specialty Diagnoses / Procedures Referred By Leeann castro Referred To Contact [facility] Diagnoses Encounter for screening mammogram for malignant neoplasm of breast Procedures ISAIAH SCREENING W IVAN SCREENING DIGITAL BREAST TOMOSYNTHESIS BI SCREENING MAMMOGRAPHY BI 2-VIEW BREAST INC CAD Kash Trejo DO [address] [place] [address] [facility] [address] [address] Referral ID Status Reason Start Date Expiration Date V isits Requested Visits Authorized [id number] Closed Auto-Generate d Referral 09/20/2021 10/20/2022 1 1 [facility] for referral (narrative)* Diagnostic Procedure Only (Routine) - Closed Specialty Diagnoses / Procedures Referred By Leeann castro Referred To Contact [facility] Diagnoses Screening mammogram for breast cancer Procedures ISAIAH SCREENING W IVAN SCREENING DIGITAL BREAST TOMOSYNTHESIS BI SCREENING MAMMOGRAPHY BI 2-VIEW BREAST INC CAD Marv Norris, MARTA.MARKETING FINANCE SPECIALIST [address] [place] [address] [facility] [address] [place] [address] Referral ID Status Reason Start Date Expiration Date V isits Requested Visits Authorized [id number] Closed Auto-Generate d Referral 08/24/2022 09/23/2023 1 1 [facility] for referral (narrative)* Diagnostic Procedure Only (Routine) - Closed Specialty Diagnoses / Procedures Referred By Contac t Referred To Contact [facility] Diagnoses Screening mammogram for breast cancer Procedures ISAIAH SCREENING W IVAN SCREENING DIGITAL BREAST TOMOSYNTHESIS BI SCREENING MAMMOGRAPHY BI 2-VIEW BREAST INC CAD Marv Norris APRN.CNP [address] [place] [address] [facility] [address] [place] [address] Referral ID Status Reason Start Date Expiration Date V isits Requested Visits Authorized [id number] Closed Auto-Generate d Referral 08/24/2022 09/23/2023 1 1 [facility] for referral (narrative)* Diagnostic Procedure Only (Routine) - Authorized Specialty Diagnoses / Procedures Referred By Contcristina t Referred To Contact [facility] Diagnoses Encounter for screening mammogram for malignant neoplasm of breast Procedures ISAIAH SCREENING W IVAN SCREENING DIGITAL BREAST TOMOSYNTHESIS BI SCREENING MAMMOGRAPHY BI 2-VIEW BREAST INC CAD Danielle Shafer PA-C [address] [place] [address] [facility] [address] [place] [address] Referral ID Status Reason Start Date Expiration Date Visits Requested Visits Authorized [id number] Authorized Auto-Generat ed Referral 09/03/2023 10/02/2024 1 1 [facility] for visit Narrative* Diagnostic Procedure Only (Routine) - Closed Specialty Diagnoses / Procedures Referred By Contac t Referred To Contact [facility] Diagnoses Encounter for screening mammogram for malignant neoplasm of breast Procedures ISAIAH SCREENING W IVAN SCREENING DIGITAL BREAST TOMOSYNTHESIS BI SCREENING MAMMOGRAPHY BI 2-VIEW BREAST INC CAD Kash Trejo DO [address] [place] [address] [facility] [address] [place] [address] Referral ID Status Reason Start Date Expiration Date V isits Requested Visits Authorized [id number] Closed Auto-Generate d Referral 09/20/2021 10/20/2022 1 1 [facility] for visit Narrative* Diagnostic Procedure Only (Routine) - Closed Specialty Diagnoses / Procedures Referred By Leeann castro Referred To Contact [facility] Diagnoses Screening mammogram for breast cancer Procedures ISAIAH SCREENING W IVAN SCREENING DIGITAL BREAST TOMOSYNTHESIS BI SCREENING MAMMOGRAPHY BI 2-VIEW BREAST INC CAD Marv Norris, STOVE TENDER.MARKETING FINANCE SPECIALIST [address] [place] [address] [facility] [address] [place] [address] Referral ID Status Reason Start Date Expiration Date V isits Requested Visits Authorized [id number] Closed Auto-Generate d Referral 08/24/2022 09/23/2023 1 1 [facility] for visit Narrative* Diagnostic Procedure Only (Routine) - Closed Specialty Diagnoses / Procedures Referred By Leeann castro Referred To Contact [facility] IMAGING Diagnoses Acute constipation Bloating Procedures XR ABDOMEN 2V ROUTINE SUPINE W UPRIGHT/DECUB/CTL RADIOLOGIC EXAM ABDOMEN 2 VIEWS Kash Trejo L, DO [address] [place] [address] [place] [address] Referral ID Status Reason Start Date Expiration Date V isits Requested Visits Authorized [id number] Closed Auto-Generate d Referral 09/21/2023 10/20/2024 1 1 [facility] Summary Purpose Family History No Family History Records FoundNo Family History Records Found Advance Directives Documents on File Type Date Recorded Patient Medication Nurse Expl anation Advance Directive(s) 09/18/2019 1:55 PM Advance Directive(s) 01/17/2012 9:29 PM Documents on File Type Date Recorded Patient Medication Nurse Expl anation Advance Directive(s) 09/18/2019 1:55 PM Advance Directive(s) 01/17/2012 9:29 PM Documents on File Type Date Recorded Patient Medication Nurse Expl anation Advance Directive(s) 01/17/2012 9:29 PM Documents on File Type Date Recorded Patient Medication Nurse Expl anation Advance Directive(s) 01/17/2012 9:29 PM Reason for Referral Specialty Diagnoses / Procedures Referred By Leeann castro Referred To Contact General Surgery Diagnoses Acute constipation Bloating Procedures CONSULT TO GENERAL SURGERY OFFICE/OUTPATIENT [facility] 60 MINUTES Kash Trejo, DO [address] [place] [address] Referral ID Status Reason Start Date Expiration Date Visits Requested Visits Authorized [id number] Authorized PCP Requested Referral 09/21/2023 09/20/2024 1 1 Specialty Diagnoses / Procedures Referred By Contac t Referred To Contact XR IMAGING Diagnoses Acute constipation Bloating Procedures XR ABDOMEN 2V ROUTINE SUPINE W UPRIGHT/DECUB/CTL RADIOLOGIC EXAM ABDOMEN 2 VIEWS Kash Trejo, DO [address] [place] [address] [place] [address] Referral ID Status Reason Start Date Expiration Date V isits Requested Visits Authorized [id number] Closed Auto-Generate d Referral 09/21/2023 10/20/2024 1 1 Additional Source Comments INFORMATION SOURCE (unrecogn ized section and content) DATE CREATED AUTHOR AUTHOR'S ORGANIZ ATION 09/03/2023 [facility] Source Comments (unrecognize d section and content) In the event this informatio n is protected by the Federal Confidentiality of Alcohol and Drug Abuse Patient Records regulations: The Federal rules restrict any use of the information to criminally investigate or prosecute any alcohol or drug abuse patient.[facility] the event this information is protected by the Federal Confidentiality of Alcohol and Drug Abuse Patient Records regulations: The Federal rules restrict any use of the information to criminally investigate or prosecute any alcohol or drug abuse patient.[facility] the event this information is protected by the Federal Confidentiality of Alcohol and Drug Abuse Patient Records regulations: The Federal rules restrict any use of the information to criminally investigate or prosecute any alcohol or drug abuse patient.[facility] the event this information is protected by the Federal Confidentiality of Alcohol and Drug Abuse Patient Records regulations: The Federal rules restrict any use of the information to criminally investigate or prosecute any alcohol or drug abuse patient.[facility] the event this information is protected by the Federal Confidentiality of Alcohol and Drug Abuse Patient Records regulations: The Federal rules restrict any use of the information to criminally investigate or prosecute any alcohol or drug abuse patient.[facility] the event this information is protected by the Federal Confidentiality of Alcohol and Drug Abuse Patient Records regulations: The Federal rules restrict any use of the information to criminally investigate or prosecute any alcohol or drug abuse patient.[facility] the event this information is protected by the Federal Confidentiality of Alcohol and Drug Abuse Patient Records regulations: The Federal rules restrict any use of the information to criminally investigate or prosecute any alcohol or drug abuse patient.[facility] the event this information is protected by the Federal Confidentiality of Alcohol and Drug Abuse Patient Records regulations: The Federal rules restrict any use of the information to criminally investigate or prosecute any alcohol or drug abuse patient.[facility] the event this information is protected by the Federal Confidentiality of Alcohol and Drug Abuse Patient Records regulations: The Federal rules restrict any use of the information to criminally investigate or prosecute any alcohol or drug abuse patient.[facility] the event this information is protected by the Federal Confidentiality of Alcohol and Drug Abuse Patient Records regulations: The Federal rules restrict any use of the information to criminally investigate or prosecute any alcohol or drug abuse patient.[facility] the event this information is protected by the Federal Confidentiality of Alcohol and Drug Abuse Patient Records regulations: The Federal rules restrict any use of the information to criminally investigate or prosecute any alcohol or drug abuse patient.[facility] the event this information is protected by the Federal Confidentiality of Alcohol and Drug Abuse Patient Records regulations: The Federal rules restrict any use of the information to criminally investigate or prosecute any alcohol or drug abuse patient.[facility] the event this information is protected by the Federal Confidentiality of Alcohol and Drug Abuse Patient Records regulations: The Federal rules restrict any use of the information to criminally investigate or prosecute any alcohol or drug abuse patient.[facility] the event this information is protected by the Federal Confidentiality of Alcohol and Drug Abuse Patient Records regulations: The Federal rules restrict any use of the information to criminally investigate or prosecute any alcohol or drug abuse patient.[facility] the event this information is protected by the Federal Confidentiality of Alcohol and Drug Abuse Patient Records regulations: The Federal rules restrict any use of the information to criminally investigate or prosecute any alcohol or drug abuse patient.[facility] the event this information is protected by the Federal Confidentiality of Alcohol and Drug Abuse Patient Records regulations: The Federal rules restrict any use of the information to criminally investigate or prosecute any alcohol or drug abuse patient.[facility] the event this information is protected by the Federal Confidentiality of Alcohol and Drug Abuse Patient Records regulations: The Federal rules restrict any use of the information to criminally investigate or prosecute any alcohol or drug abuse patient.[facility] Care Teams (unrecognized sec tion and content) Ep Technologist Relationship Specialty Start Date End Date Kash Trejo, [address] [place] [address] PCP - General Family Practice 12/31/13 Ep Technologist Relationship Specialty Start Date End Date Kash Trejo, DO [address] [place] [address] PCP - General Family Practice 12/31/13 Ep Technologist Relationship Specialty Start Date End Date Kash Trejo, DO [address] [place] [address] PCP - General Family Practice 12/31/13 Ep Technologist Relationship Specialty Start Date End Date Kash Trejo, DO [address] [place] [address] PCP - General Family Medicine 12/31/13 Ep Technologist Relationship Specialty Start Date End Date Kash Trejo, DO [address] [place] [address] PCP - General Family Medicine 12/31/13 Ep Technologist Relationship Specialty Start Date End Date Kash Trejo, DO [address] [place] [address] PCP - General Family Medicine 12/31/13 Ep Technologist Relationship Specialty Start Date End Date Kash Trejo, DO [address] [place] [address] PCP - General Family Medicine 12/31/13 Ep Technologist Relationship Specialty Start Date End Date Kash Trejo, DO [address] [place] [address] PCP - General Family Medicine 12/31/13 Ep Technologist Relationship Specialty Start Date End Date Kash Trejo DO [address] [place] [address] PCP - General Family Medicine 12/31/13 Ep Technologist Relationship Specialty Start Date End Date Kash Trejo DO [address] [place], [place] [address] PCP - General Family Medicine 12/31/13 Ep Technologist Relationship Specialty Start Date End Date Kash Trejo DO [address] [place], [place] [address] PCP - General Family Medicine 12/31/13 Ep Technologist Relationship Specialty Start Date End Date Kash Trejo DO [address] [place], [place] [address] PCP - General Family Medicine 12/31/13 Ep Technologist Relationship Specialty Start Date End Date Kash Trejo, [address] [place], [place] [address] PCP - General Family Medicine 12/31/13 Ep Technologist Relationship Specialty Start Date End Date Kash Trejo, [address] [place], [place] [address] PCP - General Family Medicine 12/31/13 Reason for Visit (unrecogniz ed section and content) Reason Onset Date Comments Refill Request 03/27/2022 Reason Comments Lab Orders Reason Comments Yearly Exam Specialty Diagnoses / Procedures Referred By Leeann castro Referred To Contact Diagnoses Skin cancer screening Procedures CONSULT TO DERMATOLOGY Marv Norris APRN.MARKETING FINANCE SPECIALIST [address] [place] [address] Referral ID Status Reason Start Date Expiration Date V isits Requested Visits Authorized [id number] Closed PCP Requested Referral 08/07/2022 08/04/2023 1 1 Reason Comments Results Reason Onset Date Comments Refill Request 01/31/2023 Reason Comments Orders Reason Comments bowel issues Constipation Reason Comments Patient Question Reason Comments Change In Bowel Habits x 1 week, bloatin g FOR RECORDS PERTAINING TO PATIENTS WHO ARE OR HAVE BEEN ENROLLED IN A CHEMICAL DEPENDENCY/SUBSTANCEABUSE PROGRAM, SOME INFORMATION MAY BE OMITTED. This clinical summary was aggregated from multiple sources. Caution should be exercised in using it in the provision of clinical care. This summary normalizes information from multiple sources, and as a consequence, information in this document may materially change the coding, format and clinical context of patient data. In addition, data may be omitted in some cases. CLINICAL DECISIONS SHOULD BE BASED ON THE PRIMARY CLINICAL RECORDS. [facility] [employer] [facility]. provides no warranty or guarantee of the accuracy or completeness of information in this document.
[2023-10-03 11:21] LABS: CREATININE FINGERSTICK < 1.0 mg/dL (0.55-1.02); EGFR FINGERSTICK > 60.0000 mL/min (>60)
== END | disposition home or self-care (01) ==
PROVIDERS: PCP Student in an Organized Health Care Education/Training Program; Referring Provider Surgery; Visit Provider Surgery
DX: K59.00 Constipation, unspecified (principal); K63.1 Perforation of intestine (nontraumatic); K57.30 Diverticulosis of large intestine without perforation or abscess without bleeding; Z87.19 Personal history of other diseases of the digestive system
CPT/HCPCS: 74177; Q9967

== ENCOUNTER 2023-10-08 13:56 | Day surgery (SDC) | payer MEDICARE, SELFPAY ==
[2023-10-08] VITALS (9 sets, daily range): BP systolic 67–129; BP diastolic 43–79; PULSE 64–92; RESP 16; TEMP 36.2–36.4; O2SAT 94–98; BMI 33.5
[2023-10-08] MEDS: Lactated Ringers 1,000 ML 15 ML IV (14:41)
--- NOTE | 2023-10-08 14:52 | PCM.HP.BLA ---
History and Physical Date of Admission: 10/08/23 Visit Reasons: CONSTIPATION Chief Complaint: constipation Vendor Management Consultant Required: No Is patient in pain?: No Medications candesartan 8 mg tablet mg PO 10/03/23 [History Confirmed 10/03/23] hydrochlorothiazide 12.5 mg capsule mg PO 10/03/23 [History Confirmed 10/03/23] sertraline 50 mg tablet mg PO 10/03/23 [History Confirmed 10/03/23] [facility] Medical History (Updated 10/03/23 @ 08:[address] Jose De Jesus Duvall MD) Abdominal pain Social History Smoking Status: Never smoker HPI HPI HPI: 67-year-old female was referred by Dr. Kash Ellis for surgical consultation regarding change of bowel habit and a written copy my surgical consult recommendations will return to her. Additionally the patient has a history of gastroesophageal reflux disease. I have assisted her with her most recent colonoscopy of August 10, 2015. That was performed because of left lower quadrant abdominal pain. The colon preparation was poor. Hemorrhoids were noted. Diverticulosis of the entire colon noted. There is a patent functional end-to-end colocolonic anastomosis. Exam was otherwise normal. More recently she has had a recurrent bout of sigmoid diverticulitis. By report April 18, 2008 at the [facility] Dr. Carl San perform laparoscopic descending colectomy with mobilization of the splenic flexure. There was a small capsular tear in the spleen which was which resolved. A functional end-to-end anastomosis was created with a 75 mm linear cutter stapler. Apparently a CT scan in May 27, 2015 demonstrated dilated segment of colon near the previous anastomosis with inflammatory changes in the proximal sigmoid. She has also had a history of left breast cancer with 2 of 8 lymph nodes positive november 2011. Patient current complaints in addition to her constipation or mid to upper abdominal pain indigestion or heartburn. The patient notes that she started having lower abdominal pain July 2023. She feels bloated and distended. She had increased troubles having bowel movements. On 10/20/2023 at the [facility] she had plain film of the abdomen suggesting a nonobstructive bowel gas pattern however constipation pattern seen from the cecum and descending colon. Her laboratory at that time showed a white count of 5.79 with a hemoglobin of 13.4 medically 39.4 platelet count 161,000 there was no shift. T3 was normal at 3. Lipase 29. T40.8. TSH 2.68. Total protein 7.1 with an albumin of 4.4 and a bilirubin was 0.2 and an ALP of 82 and AST of 27 and ALT of 22 with a serum glucose of 104. BUN is 20 and creatinine 0.65. The patient takes Metamucil in the morning she takes MiraLAX at night. She feels that her appetite is decreased. She is not passing as much stool as she previously had. Her reflux symptoms also have escalated. She is on daily omeprazole and has to take Tums as needed for breakthrough. She has not noted any weight loss. She is not currently in acute distress. She states that she required the colectomy because of a complication from a colonoscopy. But she states that she did not require the colectomy for at least 2 or 3 weeks after her colonoscopy. I do not have records of that colectomy and etiology. She is expressing some concern today about possible intra-abdominal malignancy She does have claustrophobia and finds it difficult to tolerate CT scans ROS General General: Yes fatigue and breast cancer; No weight change, appetite, colon cancer or weakness HEENT HEENT: No difficulty swallowing, eye injury, eye surgery, swollen glands or hoarseness Endo Endocrine: No thyroid disease, diabetes mellitus, thyroid cancer, Hair loss, heat intolerance or cold intolerance Skin Skin: No rash or changing moles Musc Musculoskeletal: Yes arthritis; No back problems, rheumatoid arthritis, gout or joint pain Cardio Cardiovascular: Yes high blood pressure; No murmur, pacemaker, heart disease, atrial fibrillation, heart attack, heart stent, palpitations, shortness of breat with exertion or chest pain Psych Psychiatric: Yes anxiety; No depression or hearing voices Resp Respiratory: No shortness of breath, No sleep apnea, No cough, No COPD, No asthma, No emphysema and No wheezing Gastro Gastrointestinal: Yes abdominal pain, No nausea or vomiting, No diarrhea, Yes constipation, No blood in stool, No acid reflux, No hemorrhoids, No ulcers, No gallbladder problem and No black,tarry stools Hardeep Hematologic: Yes blood thinners, No blood disorders, No bleeding, No anemia and No blood clots Additional Details: aspirin Neuro Neurologic: No weakness Exam Const General: cooperative, healthy appearing, comfortable and no acute distress Nutritional Appearance: obese HENMT Head: normal to inspection Eyes General: appearance normal, both eyes and all related structures Neck Neck: normal visual inspection Resp Effort & Inspection: normal respiratory effort Auscultation: clear to auscultation bilaterally Cardio Rate: regular rate Rhythm: regular rhythm GI Other: Distended, small vertical periumbilical midline vertical incision. Intact. No focal tenderness. No focal mass. Bowel sounds very quiet. Musc Cervical Spine: normal cervical lordosis Skin General: no rashes or lesions noted Neuro General: patient alert, patient awake and patient oriented x3 Extrem General: no calf tenderness Psych Appearance: grossly normal Assessment and Plan Assessment and Plan (1) GERD (gastroesophageal reflux disease): Status: Acute Qualifiers: Esophagitis presence: esophagitis presence not specified Qualified Code(s): K21.9 - Gastro-esophageal reflux disease without esophagitis (2) History of diverticulitis of colon: Status: Acute Plan: The patient's history is suggestive of a transfers: Right-sided obstructive pattern. She could just have right-sided constipation. Previous colonoscopy in 2016 demonstrated a widely patent anastomosis but per plain film report there is diminished caliber of the sigmoid colon. The patient does have a previous history of metastatic breast cancer. Her increased reflux symptoms could be due to generalized bowel dysmotility or shear abdominal distention from intra-abdominal pathology. I recommend to her that we obtain a fully contrasted abdominal pelvic CT scan. We will provide angiolytics to assist her with obtaining that exam. I recommended the patient that we urgently schedule her for a combined upper and lower endoscopy. Try to assess her increased reflux symptoms and try to assess her apparent bowel disparity in dysfunction. Her last bowel prep was very poor. We will prescribe a 3-day bowel prep with the first day magnesium citrate with Dulcolax and then 2 additional full days with full MiraLAX prep. She has had an opportunity ask and have questions answered. We will try to expedite all of this care for her. I appreciate the opportunity of assisting with her surgical care. Copy: Dr. Kash Duvall M.D., F.A.C.S. CT imaging demonstrates disparity in diameter of the right colon transverse colon descending colon with diminished caliber of the sigmoid colon. There is not a discussion of a mass or obstructive pattern. Jose De Jesus Duvall M.D., F.A.C.S.
--- NOTE | 2023-10-08 15:00 | COLBX_PTH ---
PATHOLOGY RESULTS PATIENT: JOEY BOOTH LOC: EN U#:[id number] AGE/SX: 67/F ROOM: RE10/08/[address]: Dr. Jose De Jesus Duvall MD : 1955 BED: DIS: 10/08/2023 SPEC #: [id number] RECD: 10/09/23 07:57 STATUS: RACHEL BEVERLY #: [id number] DALE: 10/08/23 15:[address]: Jose De Jesus Duvall DEPT: SURGICAL PATHOLOGY RECD BY: Margarita Myers ENTERED: 10/09/23 07:58 SP TYPE: COLON BX OTHR DR: Dr. Kash Ellis DO Tissues: Duodenum, NOS Gastric mucous membrane Esophageal mucous membrane Esophageal mucous membrane Procedures: Surgery Specimen Level IV HEADER OPERATION: Colonoscopy, EGD with biopsy PRE-OP DIAGNOSIS: GERD TISSUE SUBMITTED: A- Duodenum biopsy, B- Antrum for H. pylori and path, C- Distal esophagus biopsy, D- Mid esophagus biopsy MICROSCOPIC DIAGNOSIS A. Duodenum biopsy; No pathologic change. B. Gastric antrum, biopsy; Chronic gastritis See comment. C. Distal esophagus, biopsy; Gastroesophageal junctional mucosa with minimal chronic inflammation. No evidence of goblet cell metaplasia. See comment. D. Mid esophagus, biopsy; Fragments of benign squamous mucosa. No evidence of inflammation. AM/ 10/10/23 COMMENT B. The results of immunohistochemistry for Helicobacter pylori will be reported separately ([id number]). C. Alcian blue/PAS stain with matched control supports the above diagnosis. MICROSCOPIC DESCRIPTION Slides are reviewed. GROSS DESCRIPTION A - Received in fixative is one container labeled with the patient's name and designated duodenum biopsy. The specimen consists of one irregular fragment of light thomason soft tissue that measures 0.4 x 0.3 x 0.1 cm. The specimen is totally submitted in one cassette. B - Received in fixative is one container labeled with the patient's name and designated antrum biopsy. The specimen consists of one irregular fragment of light thomason soft tissue that measures 0.4 x 0.3 x 0.1 cm. The specimen is totally submitted in one cassette. C - Received in fixative is one container labeled with the patient's name and designated distal esophagus biopsy. The specimen consists of one irregular fragment of light thomason soft tissue that measures 0.3 x 0.3 x 0.1 cm. The specimen is totally submitted in one cassette. D - Received in fixative is one container labeled with the patient's name and designated mid esophagus biopsy. The specimen consists of one irregular fragment of light thomason soft tissue that measures 0.4 x 0.3 x 0.1 cm. The specimen is totally submitted in one cassette. / SJ:rg 10/09/2023 TC:3 CPT: 45320 x4 ,41162
--- NOTE | 2023-10-08 15:00 | IMM_PTH ---
PATHOLOGY RESULTS PATIENT: JOEY BOOTH LOC: EN U#:[id number] AGE/SX: 67/F ROOM: RE10/08/[address]: Dr. Jose De Jesus Duvall MD : 1955 BED: DIS: 10/08/2023 SPEC #: [id number] RECD: 10/09/23 09:41 STATUS: RACHEL REQ #: [id number] DALE: 10/08/23 15:[address]: Jose De Jesus Duvall DEPT: IMMUNOHISTOCHEMISTRY RECD BY: Raulito Sierra ENTERED: 10/09/23 09:43 SP TYPE: IMMUNO OTHR DR: Dr. Kash Ellis, DO Tissues: Stomach, NOS Procedures: H Pylori (initial) PHYSICIAN & INSTITUTION [place] [address] SPECIMEN INFORMATION: Tissue Source: B- Antrum Clinical Info: GERD Specimen Number: [id number] CPT code: 30575 METHODOLOGY: Deparaffinized sections of prefer/formalin-fixed tissue or PAP/DQ stained slides are incubated with monoclonal/polyclonal antibodies/oligonucleotide probes. Localization is made via biotin free immunoperoxidase method. Appropriate controls are performed and reacted as expected. Results on target cell population are indicated in the following table: RESULTS: ANTIBODY / CLONE RESULT Block B H Pylori (polyclonal) negative These tests were developed and their performance characteristics determined by [facility]. They may not have been cleared or approved by the U.S. Food and Drug Administration. The FDA has determined that such clearance or approval is not necessary. The above immunohistochemical/dualISH markers are ordered and reviewed by the Pathologist. INTERPRETATION: B. Antrum biopsy; Negative for Helicobacter pylori organisms.
--- NOTE | 2023-10-08 15:29 | OP.EGD_ITS ---
Patient Name: Ivonne Fontenot Procedure Date: 10/08/2023 2:45 PM Date of : 1955 Age: 67 Procedure: Upper GI endoscopy Indications: Suspected esophageal reflux Providers: Jose De Jesus Duvall MD Medicines: See the Anesthesia note for documentation of the administered medications Complications: No immediate complications. Procedure: Pre-Anesthesia Assessment: - Prior to the procedure, a History and Physical was performed, and patient medications and allergies were reviewed. The patient's tolerance of previous anesthesia was also reviewed. The risks and benefits of the procedure and the sedation options and risks were discussed with the patient. All questions were answered, and informed consent was obtained. Prior Anticoagulants: The patient has taken no anticoagulant or antiplatelet agents. ASA Grade Assessment: II - A patient with mild systemic disease. After reviewing the risks and benefits, the patient was deemed in satisfactory condition to undergo the procedure. After obtaining informed consent, the endoscope was passed under direct vision. Throughout the procedure, the patient's blood pressure, pulse, and oxygen saturations were monitored continuously. The Endoscope was introduced through the mouth, and advanced to the second part of duodenum. The upper GI endoscopy was accomplished without difficulty. The patient tolerated the procedure well. Scope In: 3:00:52 PM Scope Out: 3:07:15 PM Total Procedure Duration Time 0 hours 6 minutes 23 seconds Findings: The mid esophagus was normal. Biopsies were taken with a cold forceps for histology. The Z-line was regular and was found 37 cm from the incisors. Biopsies were taken with a cold forceps for histology. The entire examined stomach was normal. Biopsies were taken with a cold forceps for histology. The examined duodenum was normal. Biopsies were taken with a cold forceps for histology. Impression: - Normal mid esophagus. Biopsied. - Z-line regular, 37 cm from the incisors. Biopsied. - Normal stomach. Biopsied. - Normal examined duodenum. Biopsied. Recommendation: - Discharge patient to home. - Resume previous diet. - Continue present medications. - Telephone my office for pathology results in 1 week. No apparent clinically significant visualized issues. Would treat any reflux symptoms conservatively as needed. Procedure Code(s): --- Professional --- 87318, Esophagogastroduodenoscopy, flexible, transoral; with biopsy, single or multiple CPT copyright 2021 [employer]. All rights reserved. The codes documented in this report are preliminary and upon cabinet assembler review may be revised to meet current compliance requirements. Jose De Jesus Duvall MD 10/08/2023 3:28:24 PM This report has been signed electronically. Number of Addenda: 0 Note Initiated On: 10/08/2023 2:45 PM
--- NOTE | 2023-10-08 15:29 | OP.CCLET_ITS ---
10/08/2023 Kash Ellis [address] [place] [address] Re : Upper GI endoscopy procedure for Ivonne Alfred Dear Dr. Ellis This procedure was performed on Sunday, October 08, 2023. My impressions and recommendations are as follows: Impressions : - Normal mid esophagus. Biopsied. - Z-line regular, 37 cm from the incisors. Biopsied. - Normal stomach. Biopsied. - Normal examined duodenum. Biopsied. Recommendations : - Discharge patient to home. - Resume previous diet. - Continue present medications. - Telephone my office for pathology results in 1 week. No apparent clinically significant visualized issues. Would treat any reflux symptoms conservatively as needed. My findings are described in the full procedure note, which is enclosed. If I can be of further assistance, please feel free to contact me at Doctor phone number(s): Work: . Sincerely, Jose De Jesus Duvall MD 10/08/2023 3:28:24 PM This report has been signed electronically.
--- NOTE | 2023-10-08 15:35 | OP.CCLET_ITS ---
10/08/2023 Kash Ellis [address] [place] [address] Re : Colonoscopy procedure for Ivonne Shiro Dear Dr. Ellis This procedure was performed on Sunday, October 08, 2023. My impressions and recommendations are as follows: Impressions : - Non-thrombosed external hemorrhoids, non-thrombosed internal hemorrhoids and internal hemorrhoids that prolapse with straining, but spontaneously regress to the resting position (Grade II) found on digital rectal exam. - Patent end-to-side colo-colonic anastomosis, characterized by healthy appearing mucosa. - Diverticulosis in the entire examined colon. - No specimens collected. The patient has a mid sigmoid that extends proximally to the anastomosis. There is at least a 10 to 15 cm length of and colon with then the descending colon and decide into the sigmoid colon slightly more distally. All areas are absolutely widely patent. There is no evidence of acute inflammation or stricturing or mass. Recommendations : - Discharge patient to home. - Resume previous diet. - Continue present medications. - Repeat colonoscopy in 10 years for screening purposes. Would treat constipation medically. If routine measures fail then could consider advanced referral for sitz marker study and evaluation of bowel motility. My findings are described in the full procedure note, which is enclosed. If I can be of further assistance, please feel free to contact me at Doctor phone number(s): Work: . Sincerely, Jose De Jesus Duvall MD 10/08/2023 3:35:07 PM This report has been signed electronically.
--- NOTE | 2023-10-08 15:35 | OP.COLON_ITS ---
Patient Name: Ivonne Fontenot Procedure Date: 10/08/2023 3:09 PM Date of : 1955 Age: 67 Procedure: Colonoscopy Indications: Constipation Providers: Jose De Jesus Duvall MD Medicines: See the Anesthesia note for documentation of the administered medications Patient Profile: Last Colonoscopy: July 2015. Complications: No immediate complications. Procedure: Pre-Anesthesia Assessment: - Prior to the procedure, a History and Physical was performed, and patient medications and allergies were reviewed. The patient's tolerance of previous anesthesia was also reviewed. The risks and benefits of the procedure and the sedation options and risks were discussed with the patient. All questions were answered, and informed consent was obtained. Prior Anticoagulants: The patient has taken no anticoagulant or antiplatelet agents. ASA Grade Assessment: II - A patient with mild systemic disease. After reviewing the risks and benefits, the patient was deemed in satisfactory condition to undergo the procedure. After I obtained informed consent, the scope was passed under direct vision. Throughout the procedure, the patient's blood pressure, pulse, and oxygen saturations were monitored continuously. The pediatric colonoscope was introduced through the anus and advanced to the cecum, identified by appendiceal orifice and ileocecal valve. The colonoscopy was performed without difficulty. The patient tolerated the procedure well. The quality of the bowel preparation was good. The ileocecal valve and the appendiceal orifice were photographed. Scope In: 3:10:57 PM Scope Withdrawal Time 0 hours 6 minutes 9 seconds Scope Out: 3:24:14 PM Total Procedure Duration Time 0 hours 13 minutes 17 seconds Findings: The digital rectal exam findings include non-thrombosed external hemorrhoids, non-thrombosed internal hemorrhoids and internal hemorrhoids that prolapse with straining, but spontaneously regress to the resting position (Grade II). There was evidence of a prior end-to-side colo-colonic anastomosis in the mid sigmoid colon. This was patent and was characterized by healthy appearing mucosa. Multiple diverticula were found in the entire colon. Impression: - Non-thrombosed external hemorrhoids, non-thrombosed internal hemorrhoids and internal hemorrhoids that prolapse with straining, but spontaneously regress to the resting position (Grade II) found on digital rectal exam. - Patent end-to-side colo-colonic anastomosis, characterized by healthy appearing mucosa. - Diverticulosis in the entire examined colon. - No specimens collected. The patient has a mid sigmoid that extends proximally to the anastomosis. There is at least a 10 to 15 cm length of and colon with then the descending colon and decide into the sigmoid colon slightly more distally. All areas are absolutely widely patent. There is no evidence of acute inflammation or stricturing or mass. Recommendation: - Discharge patient to home. - Resume previous diet. - Continue present medications. - Repeat colonoscopy in 10 years for screening purposes. Would treat constipation medically. If routine measures fail then could consider advanced referral for sitz marker study and evaluation of bowel motility. Procedure Code(s): --- Professional --- 69094, Colonoscopy, flexible; diagnostic, including collection of specimen(s) by brushing or washing, when performed (separate procedure) Diagnosis Code(s): --- Professional --- K64.1, Second degree hemorrhoids K64.4, Residual hemorrhoidal skin tags Z98.0, Intestinal bypass and anastomosis status K59.00, Constipation, unspecified K57.30, Diverticulosis of large intestine without perforation or abscess without bleeding CPT copyright 2021 [employer]. All rights reserved. The codes documented in this report are preliminary and upon guitar repairer review may be revised to meet current compliance requirements. Jose De Jesus Duvall MD 10/08/2023 3:35:07 PM This report has been signed electronically. Number of Addenda: 0 Note Initiated On: 10/08/2023 3:09 PM
--- OUTSIDE RECORDS SUMMARY | 2023-10-08 19:42 | XMS RPT_ITS | CCD ---
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 Name Role Phone Kash Trejo DO Primary Care Provider [phone] MARV NORRIS Referring Unavailable KASH TREJO Attending [...] 09-21-2023 13:05-0500 Body temperature 97.11 [degF] Kash MonteroKormeli Work Phone: [facility] 09-21-2023 13:05-0500 Body weight 85.73 kg Kash Monterorison DO Work Phone: [facility] 09-21-2023 13:05-0500 Diastolic blood pressure 80 mm[Hg] Kash Trejo DO Work Phone: [facility] 09-21-2023 13:05-0500 Heart rate 80 /min Kash Trejo DO Work Phone: [facility] 09-21-2023 13:05-0500 Respiratory rate 16 /min Kash Trejo DO Work Phone: [facility] 09-21-2023 13:05-0500 Systolic blood pressure 146 mm[Hg] Kash Trejo DO Work Phone: [facility] 12-08-2022 08:04-0400 Body height 159 cm Kash Trejo DO Work Phone: [facility] 12-08-2022 08:04-0400 Body temperature 98.01 [degF] Kash Trejo DO Work Phone: [facility] 12-08-2022 08:04-0400 Body weight 83.92 kg Kash Trejo DO Work Phone: [facility] 12-08-2022 08:04-0400 Diastolic blood pressure 70 mm[Hg] Kash Trejo DO Work Phone: [facility] 12-08-2022 08:04-0400 Heart rate 76 /min Kash Trejo DO Work Phone: [facility] 12-08-2022 08:04-0400 Respiratory rate 16 /min Kash Trejo DO Work Phone: [facility] 12-08-2022 08:04-0400 Systolic blood pressure 124 mm[Hg] Kash Trejo DO Work Phone: [facility] Encounters Encounter Date Encounter Type Care Provider Facility Start: 09-24-2023 Telephone encounter Kash palomino DO Work Phone: [facility] Procedures Date Procedure Procedure Detail Performing Clinician Start: 12-07-2022 Lipid 1996 panel - S angel luis or Plasma Screen Wstr Start: 2022 ISAIAH SCREENING W IVAN Al yson Norris ORTHOTIC FITTER.SPRINKLING TRUCK DRIVER Work Phone: Start: 2022 Mammography Mammograph y Coordinator Start: 06-02-2022 INFLUENZA SEASONAL QUADRIVALENT HIGH DOSE AGE 65+ Ksah Trejo DO Work Phone: Start: 12-23-2021 Adult depression scr eening assessment Danielle Shafer PA-C Work Phone: Start: 11-14-2021 ISAIAH SCREENING W IVAN Elicia sueneil Ita Caleb DO Work Phone: Start: 11-14-2021 Mammography Screen Wst r Start: 12-22-2020 Adult depression scr eening assessment Screen Wstr Start: 08-10-2015 Colonoscopy Screen Wst r Plan of Treatment Date Care Activity Detail Author Start: 12-22-2030 Urine microalbumin profile [facility] Start: 12-08-2027 Lipid 1996 panel - Serum or Plasma Lipid Screening [facility] Start: 12-08-2027 Lipid panel Lipid Screening [facility] Start: 12-08-2027 LIPID SCREEN LIPID SCREEN [facility] Start: 12-21-2026 LIPID SCREEN LIPID SCREEN [facility] Start: 09-21-2026 Diabetes Screening Diabetes Screening [facility] Start: 12-22-2025 LIPID SCREEN LIPID SCREEN [facility] Start: 12-07-2025 DIABETES SCREEN DIABETES SCREEN [facility] Start: 12-07-2025 Diabetes Screening Diabetes Screening [facility] Start: 08-10-2025 Colonoscopy COLONOSCOPY [facility] Start: 08-10-2025 COLORECTAL CANCER SCREENING COLORECTAL CANCER SCREENING [facility] Start: 08-10-2025 Screening for malignant neoplasm of colon [facility] Start: 12-21-2024 DIABETES SCREEN DIABETES SCREEN [facility] Start: 09-21-2024 Annual PCP Team Chronic Disease Visit Annual PCP Team Chronic Disease Visit [facility] Start: 12-23-2023 DIABETES SCREEN DIABETES SCREEN [facility] Start: 12-09-2023 ANNUAL PCP TEAM CHRONIC DISEASE VISIT ANNUAL PCP TEAM CHRONIC DISEASE VISIT [facility] Start: 12-09-2023 BP CONTROLLED (<130/80) BP CONTROLLED (<130/80) [facility] in Start: 11-10-2023 Mammography [facility] Start: 11-10-2023 Screening for malignant neoplasm of breast Mammogram Screening [facility] Start: 07-30-2023 Depression Assessment Depression Assessment [facility] Start: 03-30-2023 Covid-19 Vaccine ( season) Covid-19 Vaccine ( season) [facility] Start: 03-30-2023 Influenza vaccination [facility] Start: 12-23-2022 Adult depression screening assessment DEPRESSION SCREENING [facility] Start: 12-23-2022 ANNUAL PCP TEAM CHRONIC DISEASE VISIT ANNUAL PCP TEAM CHRONIC DISEASE VISIT [facility] Start: 12-23-2022 BP CONTROLLED (<130/80) BP CONTROLLED (<130/80) [facility] in[facility] Start: 12-04-2022 End: 02-03-2023 25-hydroxyvitamin D3 [Mass/volume] in Serum or Plasma VITAMIN D 25 HYDROXY Lab Routine Well adult exam Expected: 12/04/2022, Expires: 02/03/2023 [facility] Work Phone: Immunizations Immunization Date Immunization Notes Care Provider Yady fleming 06-02-2022 influenza, high-dose , quadrivalent vaccine (FLUZONE HIGH DOSE QUADRIVALENT) Immunization Jesika Work Phone: [facility] Work Phone: 06-02-2022 influenza virus vaccine, unspecified formulation Screen [facility] 07-04-2021 zoster vaccine recombinant Immunization [facility] Work Phone: [facility] Work Phone: 06-21-2021 pneumococcal polysaccharide vaccine, 23 valent Immunization [facility] Work Phone: [facility] Work Phone: 12-24-2020 zoster vaccine recombinant Immunization Jesika Work Phone: [facility] Work Phone: 12-22-2020 tetanus toxoid, redu rg diphtheria toxoid, and acellular pertussis vaccine, adsorbed Screen [facility] Work Phone: 06-18-2020 pneumococcal conjuga te vaccine, 13 valent Immunization Jesika Work Phone: [facility] Work Phone: 05-16-2017 influenza, seasonal, injectable Screen Wstr [facility] Work Phone: 07-19-2015 influenza, injectabl e, quadrivalent, contains preservative Screen [facility] 06-03-2014 influenza, seasonal, injectable Screen tr [facility] Work Phone: Payers Date Payer Category Payer Medicare MMO MEDICARE MMO [employer]AGE [facility] [id number] 2021-Present [phone] [address] [place] [address] [facility] [id number] 2021 Medicare [id number] 2021 Unknown [id number] Social History Date Type Detail Facility Start: 08-02-2012 End: 12-08-2022 Tobacco smoking status NHIS Ex-smoker [facility] in End: 07-30-2004 History of tobacco use Current smoker [facility] End: 07-30-2004 History of tobacco use Cigarette Smoker [facility] Start: 09-16-2021 End: 09-21-2023 Alcohol intake Current non-drinker of alcohol (finding) [facility] Start: 09-16-2021 History SDOH Alcohol Frequency 2 [facility] Start: 09-16-2021 History SDOH Alcohol Std Drinks 1 [facility] Start: 09-16-2021 History SDOH Social Connections Phone 4 [facility] Start: 09-16-2021 History SDOH Social Connections Get Together 98 [facility] Start: 09-16-2021 History SDOH Social Connections Living 5 [facility] Start: 09-16-2021 History SDOH Physica l Activity DPW 7 [facility] Start: 09-17-2019 Education 12 [facility] Start: 1955 Sex Assigned At Not on file [facility] Start: 11-04-2021 End: 11-14-2021 Exposure to SARS-CoV-2 (event) Not sure [facility] Start: 08-02-2012 End: 09-21-2023 Cigarettes smoked current (pack per day) - Reported 0.5 [facility] Start: 08-02-2012 End: 12-08-2022 Tobacco use and exposure Smokeless tobacco non-user [facility] Start: 09-15-2021 End: 09-21-2023 Social connection and isolation panel [facility] How often do you get together with friends or relatives? Patient refused [facility] Do you belong to any clubs or organizations such as nondenominational groups, unions, fraternal or athletic groups, or school groups? No [facility] Are you now , , , , never or living with a partner? [facility] How often to you hav e a drink containing alcohol? Monthly or less [facility] How many standard dr inks containing alcohol do you have on a typical day? 1 or 2 [facility] How often do you hav e 6 or more drinks on 1 occasion? Never [facility] How hard is it for y ou to pay for the very basics like food, housing, medical care, and heating Not very hard [facility] Do you feel stress - tense, restless, nervous, or anxious, or unable to sleep at night because your mind is troubled all the time - these days [OSQ] Not at all [facility] (I/We) worried wheth er (my/our) food would run out before (I/we) got money to buy more. Never true [facility] Start: 1955 Sex Assigned At Female [facility] Start: 09-11-2023 Gender identity Identifies as female gender (finding) [facility] Medical Equipment Procedure Code Equipment Code Equipment Origin al Text Equipment Identifier Dates Port Implantable Power Port 6fr - [id number] Start: 01-12-2012 Clinical Notes 02-07-2012 to [...] Perforation of intestine (HCC) descending colon Psoriasis Research Greenhouse Supervisor Dr. Vanessa PAST SURGICAL HISTORY Procedure Laterality Date BX BREAST PERC NEED W/GUID 11/25/11 U/S needle core bx UOQ left breast COLONOSCOPY FLX DX W/COLLJ SPEC WHEN PFRMD 02/12/2008 Colonoscopy COLONOSCOPY FLX DX W/COLLJ SPEC WHEN PFRMD 02-26-11 CT GUIDED ABCESS DRAINAGE 05/03/2008 at [facility] DILATION & CURETTAGE DX&/THER NONOBSTETRIC [...] in place RMVL PETROS CTR VAD W/SUBQ PORT/BANQUET BARTENDER CTR/PRPH INSJ 2/6/13 Removal right IJ port [...] Take 1,000 Units by mouth once daily. Sigel-3 Fatty Acids-Vitamin E (FISH OIL) 1,000 mg [...] See patient instructions. Kash Trejo DO [address] [place] [address] documented in this encounter [facility] 09-26-2023 Miscellaneous Notes Spoke with pt gave information provided. Pt voices understanding. I understand her anxiousness. Continue with daily miralax and increasing fluids. Also try to alter diet to include fiber rich foods. Thank you, Marv Norris APRN.SPRINKLING TRUCK DRIVER Patient calling asking if anything she should be doing for her bowels? She is using miralax every evening. She is drinking over 100 ounces of water. Patient is very anxious about her situation, does not want to be back in the hospital with bowel issus again. Please advise Patient requested general surgery consult to be faxed to Dr Lora Duvall at [phone]. Printed consult and face sheet and insurance card copy and faxed. After 6 attempts and 2 different fax machines, gave consult to clinical investigator to deliver on her next rounds. documented in this encounter [facility] 09-21-2023 History of Present illness Narrative Radiology [...] PATIENT PRESENTS WITH AN IMPLANTABLE OR ATTACHED SUPPORT DBA: No RADIOLOGY DEPARTMENT: General X-ray: Exam(s) Completed: Abdomen X-Ray: Abdomen PERIPHERAL IV DATA: Not applicable SIGNED BY: RT Vadim(R) September 21, 2023 3:11 PM documented in this encounter [facility] 09-20-2023 Miscellaneous Notes Patient call in for [...] Patient has had bowel surgery. Protocols used: [id number] documented in this encounter [facility] 09-03-2023 Miscellaneous Notes Pt sent in [employer] message requesting an order for her yearly mammogram, pts last mammogram was 2022 Please review and advise Thank you! documented in this encounter [facility] 01-31-2023 Miscellaneous Notes Patient has been identified [...] Lelo Aragon RN documented in this encounter [facility] 12-11-2022 Miscellaneous Notes Patient notified and verbalized understanding Margarita Rousseau Cma Please let patient know her labs are stable. Her hemoglobin a1c has improved. documented in this encounter [facility] 12-08-2022 Note HNO ID: [id number] Author: Kash Trejo, DO Service: ? Author [...] Perforation of intestine (HCC) descending colon Psoriasis Research Greenhouse Supervisor Dr. Vanessa PAST SURGICAL HISTORY Procedure Laterality Date BX BREAST PERC NEED W/GUID 11/25/11 U/S needle core bx UOQ left breast COLONOSCOPY FLX DX W/COLLJ SPEC WHEN PFRMD 02/12/2008 Colonoscopy COLONOSCOPY FLX DX W/COLLJ SPEC WHEN PFRMD 02-26-11 CT GUIDED ABCESS DRAINAGE 05/03/2008 at [facility] DILATION AND CURETTAGE DXAND/THER NONOBSTETRIC [...] in place RMVL PETROS CTR VAD W/SUBQ PORT/BANQUET BARTENDER CTR/PRPH INSJ 09/04/12 Removal right IJ port [...] Take 81 mg by mouth once daily. Sigel-3 Fatty Acids-Vitamin E (FISH OIL) 1,000 mg [...] Skin cancer scr (more content not included)... 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 Vanessa PAST SURGICAL HISTORY Procedure Laterality Date BX BREAST PERC NEED W/GUID 11/25/11 U/S needle core bx UOQ left breast COLONOSCOPY FLX DX W/COLLJ SPEC WHEN PFRMD 02/12/2008 Colonoscopy COLONOSCOPY FLX DX W/COLLJ SPEC WHEN PFRMD 02-26-11 CT GUIDED ABCESS DRAINAGE 05/03/2008 at [facility] DILATION & CURETTAGE DX&/THER NONOBSTETRIC [...] in place RMVL PETROS CTR VAD W/SUBQ PORT/BANQUET BARTENDER CTR/PRPH INSJ 09/04/12 Removal right IJ port [...] Take 81 mg by mouth once daily. Sigel-3 Fatty Acids-Vitamin E (FISH OIL) 1,000 mg [...] agreed with the plan. Kash Trejo DO [address] [place] [address] documented in this encounter [facility] 12-04-2022 Miscellaneous Notes TC to patient who [...] Lidia Alba RN documented in this encounter [facility] 11-10-2022 Miscellaneous Notes November 13, 2022 PID: [id number] Ivonne Fontenot [address] [place] [address] Dear Ms. Fontenot, We are pleased to [...] report will be kept on file at [facility] as part of your permanent medical record and are available for your continuing care. Thank you for allowing us to help in meeting your health care needs. Sincerely, Dr. Pimentel Interpreting Radiologist [facility] (Normal over 40) documented in this encounter [facility] 2022 Note HNO ID: [id number] Author: Katey Willoughby, Differentialo [employer] Service: ? Author Type: Tester Operator Helper Type: Progress Notes Filed: 2022 8:55 AM [...] DATA: Not applicable SIGNED BY: Katey Willoughby SeoPult 2022 8:[address] [facility] 2022 History of Present illness Narrative Radiology [...] DATA: Not applicable SIGNED BY: Katey Willoughby SeoPult 2022 8:29 AM documented in this encounter [facility] 08-24-2022 Miscellaneous Notes Ordered. Due in October. Please assist in scheduling. Thank you, Marv Norris APRN.SPRINKLING TRUCK DRIVER Pt is requesting an order for a mammogram be placed for her. Please review and advise. MARCELINO Dee documented in this encounter [facility] 03-27-2022 Miscellaneous Notes [place] 12/23/2021 NOV not [...] patient. Irma Fairbanks documented in this encounter [facility] 01-31-2022 Miscellaneous Notes Patient phones requesting refills as follows: Pending Prescriptions Disp Refills HYDROCHLOROTHIAZIDE 12.5 MG CAPSULE 90 capsule 3 Sig: TAKE 1 CAPSULE DAILY MEGHAN: Yes [place]-12/23/21 Labs-12/21/21 NOV-none med filled 03/04/21 Please review and advise. Julia West LPN documented in this encounter [facility] 11-14-2021 Miscellaneous Notes November 14, 2021 PID: [id number] Ivonne Fontenot [address] [place] [address] [place] [address] Dear Ms. Fontenot, We are pleased to [...] report will be kept on file at [facility] as part of your permanent medical record and are available for your continuing care. Thank you for allowing us to help in meeting your health care needs. Sincerely, Dr. Shipley Interpreting Radiologist [facility] (Normal over 40) documented in this encounter [facility] 11-14-2021 History of Present illness Narrative Radiology [...] 2021 7:49 AM documented in this encounter [facility] 01-03-2021 Note HNO ID: [id number] Author: CHERYL Stephens Service: Radiology Author Type: Clinical Tester Operator Helper Type: Progress Notes Filed: 01/03/2021 10:20 AM [...] CHERYL Stephens January 03, 2021 10:20 AM [facility] documented as of this encounter (statuses as of 11/15/2021) [facility] History of Past illness Narrative* Problem Noted Date Resolved Date 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) 02/07/2012 10/28/2013 Seroma 12/26/2011 10/28/2013 Lump or mass in breast 11/25/2011 4 Iron deficiency anemia, unspecified 01/23/2008 10/28/2013 Endometriosis, site unspecified 10/28/2013 documented as of this encounter (statuses as of 11/16/2021) [facility] History of Past illness Narrative* Problem Noted Date Resolved Date 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) 02/07/2012 10/28/2013 Seroma 12/26/2011 10/28/2013 Lump or mass in breast 11/25/2011 4 Iron deficiency anemia, unspecified 01/23/2008 10/28/2013 Endometriosis, site unspecified 10/28/2013 documented as of this encounter (statuses as of 02/01/2022) [facility] History of Past illness Narrative* Problem Noted Date Resolved Date 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) 02/07/2012 10/28/2013 Seroma 12/26/2011 10/28/2013 Lump or mass in breast 11/25/2011 4 Iron deficiency anemia, unspecified 01/23/2008 10/28/2013 Endometriosis, site unspecified 10/28/2013 documented as of this encounter (statuses as of 03/27/2022) [facility] History of Past illness Narrative* Problem Noted Date Resolved Date 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) 02/07/2012 10/28/2013 Seroma 12/26/2011 10/28/2013 Lump or mass in breast 11/25/2011 4 Iron deficiency anemia, unspecified 01/23/2008 10/28/2013 Endometriosis, site unspecified 10/28/2013 documented as of this encounter (statuses as of 06/02/2022) [facility] History of Past illness Narrative* Problem Noted Date Resolved Date 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) 02/07/2012 10/28/2013 Seroma 12/26/2011 10/28/2013 Lump or mass in breast 11/25/2011 4 Iron deficiency anemia, unspecified 01/23/2008 10/28/2013 Endometriosis, site unspecified 10/28/2013 documented as of this encounter (statuses as of 11/14/2022) [facility] History of Past illness Narrative* Problem Noted Date Resolved Date 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) 02/07/2012 10/28/2013 Seroma 12/26/2011 10/28/2013 Lump or mass in breast 11/25/2011 4 Iron deficiency anemia, unspecified 01/23/2008 10/28/2013 Endometriosis, site unspecified 10/28/2013 documented as of this encounter (statuses as of 12/04/2022) [facility] History of Past illness Narrative* Problem Noted Date Resolved Date 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) 02/07/2012 10/28/2013 Seroma 12/26/2011 10/28/2013 Lump or mass in breast 11/25/2011 4 Iron deficiency anemia, unspecified 01/23/2008 10/28/2013 Endometriosis, site unspecified 10/28/2013 documented as of this encounter (statuses as of 12/08/2022) [facility] History of Past illness Narrative* Problem Noted Date Resolved Date 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) 02/07/2012 10/28/2013 Seroma 12/26/2011 10/28/2013 Lump or mass in breast 11/25/2011 4 Iron deficiency anemia, unspecified 01/23/2008 10/28/2013 Endometriosis, site unspecified 10/28/2013 documented as of this encounter (statuses as of 12/11/2022) [facility] History of Past illness Narrative* Problem Noted Date Resolved Date 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) 02/07/2012 10/28/2013 Seroma 12/26/2011 10/28/2013 Lump or mass in breast 11/25/2011 4 Iron deficiency anemia, unspecified 01/23/2008 10/28/2013 Endometriosis, site unspecified 10/28/2013 documented as of this encounter (statuses as of 02/01/2023) [facility] History of Past illness Narrative* Problem Noted Date Diagnosed Date Resolved Date 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) 02/07/2012 10/28/2013 Seroma 12/26/2011 10/28/2013 Lump or mass in breast 11/25/201110/28 Iron deficiency anemia, unspecified 01/23/2008 10/28/2013 Endometriosis, site unspecified 10/28/2013 documented as of this encounter (statuses as of 06/03/2023) [address]11-2012 History of Past illness Narrative* Problem Noted Date Diagnosed Date Resolved Date 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) 02/07/2012 10/28/2013 Seroma 12/26/2011 10/28/2013 Lump or mass in breast 11/25/201110/28 Iron deficiency anemia, unspecified 01/23/2008 10/28/2013 Endometriosis, site unspecified 10/28/2013 documented as of this encounter (statuses as of 06/08/2023) [facility] History of Past illness Narrative* Problem Noted Date Diagnosed Date Resolved Date 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) 02/07/2012 10/28/2013 Seroma 12/26/2011 10/28/2013 Lump or mass in breast 11/25/201110/28 Iron deficiency anemia, unspecified 01/23/2008 10/28/2013 Endometriosis, site unspecified 10/28/2013 documented as of this encounter (statuses as of 09/03/2023) [facility] History of Past illness Narrative* Problem Noted Date Diagnosed Date Resolved Date 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) 02/07/2012 10/28/2013 Seroma 12/26/2011 10/28/2013 Lump or mass in breast 11/25/201110/28 Iron deficiency anemia, unspecified 01/23/2008 10/28/2013 Endometriosis, site unspecified 10/28/2013 documented as of this encounter (statuses as of 09/20/2023) [facility] History of Past illness Narrative* Problem Noted Date Diagnosed Date Resolved Date 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) 02/07/2012 10/28/2013 Seroma 12/26/2011 10/28/2013 Lump or mass in breast 11/25/201110/28 Iron deficiency anemia, unspecified 01/23/2008 10/28/2013 Endometriosis, site unspecified 10/28/2013 documented as of this encounter (statuses as of 09/22/2023) [facility] History of Past illness Narrative* Problem Noted Date Diagnosed Date Resolved Date 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) 02/07/2012 10/28/2013 Seroma 12/26/2011 10/28/2013 Lump or mass in breast 11/25/201110/28 Iron deficiency anemia, unspecified 01/23/2008 10/28/2013 Endometriosis, site unspecified 10/28/2013 documented as of this encounter (statuses as of 09/27/2023) [facility] History of Past illness Narrative* Problem Noted Date Diagnosed Date Resolved Date 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) 02/07/2012 10/28/2013 Seroma 12/26/2011 10/28/2013 Lump or mass in breast 11/25/201110/28 Iron deficiency anemia, unspecified 01/23/2008 10/28/2013 Endometriosis, site unspecified 10/28/2013 documented as of this encounter (statuses as of 10/02/2023) [facility] Encounter for screening mammogram for malignant neoplasm of breast Other screening mammogram [facility] Diagnosis Essential hypertension Unspecified essential hypertension [facility] Diagnosis Well adult exam- Primary Routine general medical examination at a health care facility [facility] Greater trochanteric bursitis of [...] of breast (HCC) [facility] Diagnosis Essential hypertension Unspecified essential hypertension NATASHA (generalized anxiety disorder) Generalized anxiety disorder [facility] Screening mammogram for breast cancer [facility] Diagnosis Screening mammogram for breast cancer- Primary [facility] Encounter for screening mammogram for malignant neoplasm of breast- Primary Other screening [facility]ogram [facility] Diagnosis Acute constipation Unspecified constipation Bloating Flatulence, eructation, and gas pain documented in this encounter [facility] note* Diagnosis Acute constipation- Primary Unspecified constipation Essential hypertension Unspecified essential hypertension NATASHA (generalized anxiety disorder) Generalized anxiety disorder Bloating Flatulence, eructation, and gas pain Gastroesophageal reflux disease without esophagitis Esophageal reflux Belching Flatulence, eructation, and gas pain Malignant neoplasm of female breast, unspecified estrogen receptor status, unspecified laterality, unspecified site of breast (HCC) documented in this encounter [facility] for referral (narrative)* Diagnostic Procedure Only (Routine) - Closed Specialty Diagnoses / Procedures Referred By Leeann castro Referred To Contact [facility] Diagnoses Encounter for screening mammogram for malignant neoplasm of breast Procedures ISAIAH SCREENING W IVAN SCREENING DIGITAL BREAST TOMOSYNTHESIS BI SCREENING MAMMOGRAPHY BI 2-VIEW BREAST INC CAD Kash Trejo DO [address] [place] [address] [facility] [address] [place] [address] Referral ID Status Reason Start Date Expiration Date V isits Requested Visits Authorized [id number] Closed Auto-Generate d Referral 09/20/2021 10/20/2022 1 1 [facility] for referral (narrative)* Diagnostic Procedure Only (Routine) - Closed Specialty Diagnoses / Procedures Referred By Leeann castro Referred To Contact [facility] Diagnoses Screening mammogram for breast cancer Procedures ISAIAH SCREENING W IVAN SCREENING DIGITAL BREAST TOMOSYNTHESIS BI SCREENING MAMMOGRAPHY BI 2-VIEW BREAST INC CAD Marv Norris, MARTA.SPRINKLING TRUCK DRIVER [address] [place] [address] [facility] [address] [place] [address] Referral ID Status Reason Start Date Expiration Date V isits Requested Visits Authorized [id number] Closed Auto-Generate d Referral 08/24/2022 09/23/2023 1 1 [facility] for referral (narrative)* Diagnostic Procedure Only (Routine) - Closed Specialty Diagnoses / Procedures Referred By Contac t Referred To Contact [facility] Diagnoses Screening mammogram for breast cancer Procedures ISAIAH SCREENING W IVAN SCREENING DIGITAL BREAST TOMOSYNTHESIS BI SCREENING MAMMOGRAPHY BI 2-VIEW BREAST INC CAD Marv Norris APRN.CNP [address] [place] [address] [facility] [address] [place] [address] Referral ID Status Reason Start Date Expiration Date V isits Requested Visits Authorized [id number] Closed Auto-Generate d Referral 08/24/2022 09/23/2023 1 1 [facility] for referral (narrative)* Diagnostic Procedure Only (Routine) - Authorized Specialty Diagnoses / Procedures Referred By Contcristina t Referred To Contact [facility] Diagnoses Encounter for screening mammogram for malignant neoplasm of breast Procedures ISAIAH SCREENING W IVAN SCREENING DIGITAL BREAST TOMOSYNTHESIS BI SCREENING MAMMOGRAPHY BI 2-VIEW BREAST INC CAD Danielle Shafer PA-C [address] [place] [address] [facility] [address] [place] [address] Referral ID Status Reason Start Date Expiration Date Visits Requested Visits Authorized [id number] Authorized Auto-Generat ed Referral 09/03/2023 10/02/2024 1 1 [facility] for visit Narrative* Diagnostic Procedure Only (Routine) - Closed Specialty Diagnoses / Procedures Referred By Contac t Referred To Contact [facility] Diagnoses Encounter for screening mammogram for malignant neoplasm of breast Procedures ISAIAH SCREENING W IVAN SCREENING DIGITAL BREAST TOMOSYNTHESIS BI SCREENING MAMMOGRAPHY BI 2-VIEW BREAST INC CAD Kash Trejo DO [address] [place] [address] [facility] [address] [place] [address] Referral ID Status Reason Start Date Expiration Date V isits Requested Visits Authorized [id number] Closed Auto-Generate d Referral 09/20/2021 10/20/2022 1 1 [facility] for visit Narrative* Diagnostic Procedure Only (Routine) - Closed Specialty Diagnoses / Procedures Referred By Leeann castro Referred To Contact [facility] Diagnoses Screening mammogram for breast cancer Procedures ISAIAH SCREENING W IVAN SCREENING DIGITAL BREAST TOMOSYNTHESIS BI SCREENING MAMMOGRAPHY BI 2-VIEW BREAST INC CAD Marv Norris, ORTHOTIC FITTER.SPRINKLING TRUCK DRIVER [address] [place] [address] [facility] [address] [place] [address] Referral ID Status Reason Start Date Expiration Date V isits Requested Visits Authorized [id number] Closed Auto-Generate d Referral 08/24/2022 09/23/2023 1 1 [facility] for visit Narrative* Diagnostic Procedure Only (Routine) - Closed Specialty Diagnoses / Procedures Referred By Leeann castro Referred To Contact X[facility] IMAGING Diagnoses Acute constipation Bloating Procedures XR ABDOMEN 2V ROUTINE SUPINE W UPRIGHT/DECUB/CTL RADIOLOGIC EXAM ABDOMEN 2 VIEWS Kash Trejo L, DO [address] [place] [address] [place] [address] Referral ID Status Reason Start Date Expiration Date V isits Requested Visits Authorized [id number] Closed Auto-Generate d Referral 09/21/2023 10/20/2024 1 1 [facility] Summary Purpose Family History No Family History Records FoundNo Family History Records Found Advance Directives Documents on File Type Date Recorded 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 Advance Directive(s) 09/18/2019 1:55 PM Advance Directive(s) 01/17/2012 9:29 PM Documents on File Type Date Recorded 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 Advance Directive(s) 09/18/2019 1:55 PM Advance Directive(s) 01/17/2012 9:29 PM Documents on File Type Date Recorded 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 Advance Directive(s) 01/17/2012 9:29 PM Documents on File Type Date Recorded 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 Advance Directive(s) 01/17/2012 9:29 PM Reason for Referral Specialty Diagnoses / Procedures Referred By Leeann castro Referred To Contact General Surgery Diagnoses Acute constipation Bloating Procedures CONSULT TO GENERAL SURGERY OFFICE/OUTPATIENT [facility] 60 MINUTES Kash Trejo, DO [address] [place] [address] Referral ID Status Reason Start Date Expiration Date Visits Requested Visits Authorized [id number] Authorized PCP Requested Referral 09/21/2023 09/20/2024 1 1 Specialty Diagnoses / Procedures Referred By Contac t Referred To Contact XR IMAGING Diagnoses Acute constipation Bloating Procedures XR ABDOMEN 2V ROUTINE SUPINE W UPRIGHT/DECUB/CTL RADIOLOGIC EXAM ABDOMEN 2 VIEWS Kash Trejo, DO [address] [place] [address] [place] [address] Referral ID Status Reason Start Date Expiration Date V isits Requested Visits Authorized [id number] Closed Auto-Generate d Referral 09/21/2023 10/20/2024 1 1 Additional Source Comments INFORMATION SOURCE (unrecogn ized section and content) DATE CREATED AUTHOR AUTHOR'S ORGANIZ ATION 09/03/[address] [facility] Source Comments (unrecognize d section and content) In the event this informatio n is protected by the Federal Confidentiality of Alcohol and Drug Abuse Patient Records regulations: The Federal rules restrict any use of the information to criminally investigate or prosecute any alcohol or drug abuse patient.[facility] the event this information is protected by the Federal Confidentiality of Alcohol and Drug Abuse Patient Records regulations: The Federal rules restrict any use of the information to criminally investigate or prosecute any alcohol or drug abuse patient.[facility] the event this information is protected by the Federal Confidentiality of Alcohol and Drug Abuse Patient Records regulations: The Federal rules restrict any use of the information to criminally investigate or prosecute any alcohol or drug abuse patient.[facility] the event this information is protected by the Federal Confidentiality of Alcohol and Drug Abuse Patient Records regulations: The Federal rules restrict any use of the information to criminally investigate or prosecute any alcohol or drug abuse patient.[facility] the event this information is protected by the Federal Confidentiality of Alcohol and Drug Abuse Patient Records regulations: The Federal rules restrict any use of the information to criminally investigate or prosecute any alcohol or drug abuse patient.[facility] the event this information is protected by the Federal Confidentiality of Alcohol and Drug Abuse Patient Records regulations: The Federal rules restrict any use of the information to criminally investigate or prosecute any alcohol or drug abuse patient.[facility] the event this information is protected by the Federal Confidentiality of Alcohol and Drug Abuse Patient Records regulations: The Federal rules restrict any use of the information to criminally investigate or prosecute any alcohol or drug abuse patient.[facility] the event this information is protected by the Federal Confidentiality of Alcohol and Drug Abuse Patient Records regulations: The Federal rules restrict any use of the information to criminally investigate or prosecute any alcohol or drug abuse patient.[facility] the event this information is protected by the Federal Confidentiality of Alcohol and Drug Abuse Patient Records regulations: The Federal rules restrict any use of the information to criminally investigate or prosecute any alcohol or drug abuse patient.[facility] the event this information is protected by the Federal Confidentiality of Alcohol and Drug Abuse Patient Records regulations: The Federal rules restrict any use of the information to criminally investigate or prosecute any alcohol or drug abuse patient.[facility] the event this information is protected by the Federal Confidentiality of Alcohol and Drug Abuse Patient Records regulations: The Federal rules restrict any use of the information to criminally investigate or prosecute any alcohol or drug abuse patient.[facility] the event this information is protected by the Federal Confidentiality of Alcohol and Drug Abuse Patient Records regulations: The Federal rules restrict any use of the information to criminally investigate or prosecute any alcohol or drug abuse patient.[facility] the event this information is protected by the Federal Confidentiality of Alcohol and Drug Abuse Patient Records regulations: The Federal rules restrict any use of the information to criminally investigate or prosecute any alcohol or drug abuse patient.[facility] the event this information is protected by the Federal Confidentiality of Alcohol and Drug Abuse Patient Records regulations: The Federal rules restrict any use of the information to criminally investigate or prosecute any alcohol or drug abuse patient.[facility] the event this information is protected by the Federal Confidentiality of Alcohol and Drug Abuse Patient Records regulations: The Federal rules restrict any use of the information to criminally investigate or prosecute any alcohol or drug abuse patient.[facility] the event this information is protected by the Federal Confidentiality of Alcohol and Drug Abuse Patient Records regulations: The Federal rules restrict any use of the information to criminally investigate or prosecute any alcohol or drug abuse patient.[facility] the event this information is protected by the Federal Confidentiality of Alcohol and Drug Abuse Patient Records regulations: The Federal rules restrict any use of the information to criminally investigate or prosecute any alcohol or drug abuse patient.[facility] Care Teams (unrecognized sec tion and content) Shipyard Painter Helper Relationship Specialty Start Date End Date Kash Trejo, [address] [place] [address] PCP - General Family Practice 12/31/13 Shipyard Painter Helper Relationship Specialty Start Date End Date Kash Trejo, DO [address] [place] [address] PCP - General Family Practice 12/31/13 Shipyard Painter Helper Relationship Specialty Start Date End Date Kash Trejo, DO [address] [place] [address] PCP - General Family Practice 12/31/13 Shipyard Painter Helper Relationship Specialty Start Date End Date Kash Trejo, DO [address] [place] [address] PCP - General Family Medicine 12/31/13 Shipyard Painter Helper Relationship Specialty Start Date End Date Kash Trejo, DO [address] [place] [address] PCP - General Family Medicine 12/31/13 Shipyard Painter Helper Relationship Specialty Start Date End Date Kash Trejo, DO [address] [place] [address] PCP - General Family Medicine 12/31/13 Shipyard Painter Helper Relationship Specialty Start Date End Date Kash Trejo, DO [address] [place] [address] PCP - General Family Medicine 12/31/13 Shipyard Painter Helper Relationship Specialty Start Date End Date Kash Trejo, DO [address] [place] [address] PCP - General Family Medicine 12/31/13 Shipyard Painter Helper Relationship Specialty Start Date End Date Kash Trejo DO [address] [place] [address] PCP - General Family Medicine 12/31/13 Shipyard Painter Helper Relationship Specialty Start Date End Date Kash Trejo DO [address] [place], [place] [id number] PCP - General Family Medicine 12/31/13 Shipyard Painter Helper Relationship Specialty Start Date End Date Kash Trejo DO [address] [place], [place] [address] PCP - General Family Medicine 12/31/13 Shipyard Painter Helper Relationship Specialty Start Date End Date Kash Trejo DO [address] [place], [place] [address] PCP - General Family Medicine 12/31/13 Shipyard Painter Helper Relationship Specialty Start Date End Date Kash Trejo, [address] [place], [place] [address] PCP - General Family Medicine 12/31/13 Shipyard Painter Helper Relationship Specialty Start Date End Date Kash Trejo, [address] [place], [place] [address] PCP - General Family Medicine 12/31/13 Reason for Visit (unrecogniz ed section and content) Reason Onset Date Comments Refill Request 03/27/2022 Reason Comments Lab Orders Reason Comments Yearly Exam Specialty Diagnoses / Procedures Referred By Leeann castro Referred To Contact Diagnoses Skin cancer screening Procedures CONSULT TO DERMATOLOGY Marv Norris APRN.SPRINKLING TRUCK DRIVER [address] [place] [address] Referral ID Status Reason Start Date Expiration Date V isits Requested Visits Authorized [id number] Closed PCP Requested Referral 08/07/2022 08/04/2023 1 [...] BE BASED ON THE PRIMARY CLINICAL RECORDS. [facility] [employer] [facility]. provides no warranty or guarantee of the accuracy or completeness of information in this document.
== END 2023-10-08 16:55 | disposition home or self-care (01) ==
LOC: EN 14:04 → AC 14:04
PROVIDERS: PCP Student in an Organized Health Care Education/Training Program; Referring Provider Student in an Organized Health Care Education/Training Program; Visit Provider Surgery
PROC: 0DJD8ZZ Inspection of Lower Intestinal Tract, Via Natural or Artificial Opening Endoscopic (ICD-10-PCS; CPT 45378; principal; 2023-10-08 14:55)
DX: K57.30 Diverticulosis of large intestine without perforation or abscess without bleeding (principal); K21.00 Gastro-esophageal reflux disease with esophagitis, without bleeding; E66.9 Obesity, unspecified; I10 Essential (primary) hypertension; K64.4 Residual hemorrhoidal skin tags; K64.1 Second degree hemorrhoids; K29.50 Unspecified chronic gastritis without bleeding; Z79.82 Long term (current) use of aspirin; Z79.899 Other long term (current) drug therapy; Z98.0 Intestinal bypass and anastomosis status
CPT/HCPCS: 45378; 43239; 88305; 88342; J2405